=== PATIENT | female | born 1945 | race Caucasian/White ===

== ENCOUNTER 2016-10-22 12:42 | Inpatient (IN) | payer OTHER, BC ==
[~2016-10-22] VITALS: Ht 165.1 cm; Wt 83.7 kg
[~2016-10-22 12:42] MED LIST: ADVIN25050 INH; ASCA500 PO; CIPR-255 PO; CLTP PO; LISI-725 PO; LORA24TA7 PO; MULT-506 PO; POLY99.02 OPB; PRM625 PO; SALI1SPR3 NAE; SIMV20TA2 PO; VERA240T20 PO
[2016-10-22] MEDS ORDERED: PRED10TA PO (13:15)
[2016-10-22] MEDS ORDERED: MAGN400T6 PO (13:15)
[2016-10-22] MEDS ORDERED: OPTIRAY 320 IV PRN (13:30)
[2016-10-22 13:35] LABS: BASO % 0.1 %; BASO ABS # 0.01 K/uL (0-0.2); COMPLETE YES; IG% 0.4 %; LYMPH ABS # 0.67 K/uL (1.2-3.4); MEAN CORPUSCULAR HGB CONC 33.3 g/dl (32-36); MEAN PLATELET VOLUME 9.2 fL (7.4-10.4); NEUT % 91.5 %; PLATELET COUNT 360 K/uL (130-400); RED BLOOD COUNT 3.75 M/uL (4.2-5.4); WHITE BLOOD COUNT 11.22 K/uL (4.8-10.8)
[2016-10-22 13:44] LABS: INR 0.9 (0.9-1.1); PARTIAL THROMBOPLASTIN RATIO 0.8; PROTHROMBIN TIME (PATIENT) 9.9 SECONDS (9.0-12.0)
[2016-10-22 13:45] LABS: BUN/CREATININE RATIO 23.5 (10-20); CALCIUM 9.1 mg/dl (8.5-10.1); CREATININE 0.93 mg/dl (0.60-1.20); POTASSIUM 4.6 mmol/L (3.5-5.1)
--- NOTE | 2016-10-22 14:04 | DIAGNOSTIC IMAGING REPORT ---
CHEST CTA for PULMONARY ARTERIES CT DOSE: 420.49 mGy.cm HISTORY: Chest pain. Dyspnea. TECHNIQUE: Multiaxial CT images of the chest were performed following the intravenous administration of contrast to evaluate the pulmonary arteries. Maximal intensity projection images were also obtained. COMPARISON STUDY: None. FINDINGS: Moderate atherosclerotic change thoracic aorta. No evidence for aneurysm or dissection. Heart top limits normal terms of size. Filling defect within the pulmonary arteries Involving a right lower lobe distribution. No evidence for a central or saddle embolus. Small defects involving the proximal right upper lobe distribution. Lungs appear clear. IMPRESSION: Study is positive for acute pulmonary emboli involving the right hemithorax. No evidence for main or central saddle embolus. Electronically signed by: Curtis Bullock M.D. 10/22/2016 2:03 PM Dictated Date/Time: 10/22/2016 1:55 PM
[2016-10-22] MEDS ORDERED: HEPARIN 25000 UNIT/500 ML D5W ONE (14:40)
[2016-10-22] MEDS ORDERED: HEPARIN SOD 5000 UNIT/0.5 ML CARP ONE (14:40)
[2016-10-22] MEDS ORDERED: HEPARIN SOD (PORCINE) 1000 UNIT/ML 10 ML VIAL ONE (14:58)
[2016-10-22] MEDS ORDERED: HEPARIN 25,000 UNIT/500ML D5W 500 ML IV PRN ×3 (15:00→15:45)
[2016-10-22] MEDS ORDERED: HEPARIN IV BOLUS 5,000 UNIT in SYRINGE 0 ML IV ONE (15:15)
[2016-10-22] MEDS ORDERED: MONT1TAB3 PO (15:43)
[2016-10-22] MEDS ORDERED: VTMD1000 (15:43)
[2016-10-22] MEDS ORDERED: PROB1CAP6 (15:43)
[2016-10-22] MEDS ORDERED: ASPI81CH2 PO (15:43)
[2016-10-22] MEDS ORDERED: MELO7.5T6 PO (15:43)
[2016-10-22] MEDS ORDERED: CHN/1 PO (15:43)
[2016-10-22] MEDS ORDERED: CYCL0.052 OP (15:43)
[2016-10-22] MEDS ORDERED: ALBU18002 INH (15:43)
--- NOTE | 2016-10-22 16:42 | History and Physical ---
History & Physical Date & Time of Service: Oct 22, 2016 at 16:08 Chief Complaint: Trouble Breathing Primary Care Physician: Kingsley Landers M.D.(COLLEEN) History of Present Illness Source: patient, clinic records, hospital records 71 year old female with PMH of COPD, Dyslipidemia, HTN, Carotid stenosis presents to the Emergency Room with complaints of worsening shortness of breath over the past few weeks. Pt said that her shortness of breath worsening with minimal exertion. She said that she saw her PCP yesterday that that did a cxr that was negative and started her on singular and order blood work for her. she received a call today from her PCP that instructed her to go to the ED because of elevated DDimer. Denies chest pain, palpitation, cough, cold, fever, vomiting , leg swelling or pain, or other complaints. She denies any recent traveling or trauma. No history of blood clots in the past. She had a CTA chest/thorax done in the ER that was positive for pulmonary emboli. Past Medical/Surgical History Medical Problems: (1) angioplasty Status: Resolved (2) Asthma Status: Chronic (3) Benign hypertension Status: Chronic (4) cataract surgery Status: Resolved (5) Deviated nasal septum Status: Resolved (6) Dilation and curettage Status: Resolved (7) History of - hysterectomy Status: Resolved (8) History of - pneumonia Status: Chronic (9) History of augmentation of breast Status: Chronic (10) Hyperlipidemia Status: Chronic (11) Pulmonary emphysema Status: Chronic (12) Tonsillectomy and adenoidectomy Status: Resolved (13) [place] Teeth Removal Status: Resolved Social History Smoking Status: Former Smoker Drug Use: none Marital Status: Occupational Status: other Multi-Drug Resistant Organisms History of MDRO: No Allergies Coded Allergies: Lactose (Verified Allergy, Intermediate, GI DISTRESS, 10/22/16) PT IS LACTOSE INTOLERANT Diphenhydramine (Verified Allergy, Mild, HYPERACTIVITY AND SKIN CRAWLS, ) Clindamycin (Verified Allergy, Unknown, RASH, 10/22/16) ALLSCRIPTS Fluconazole (Unverified Allergy, Unknown, HIVES, 10/22/16) Home Medications Scheduled Aspirin (Aspirin), 81 MG PO DAILY Calcium/Vitamin D (Caltrate 600 Plus *), 2 TAB PO BID Cholecalciferol (Vitamin D3), 1,000 DAILY Cyclosporine (Ophth) (Restasis), 1 DROPS OP BID Estrogens, Conjugated (Premarin), 0.625 MG PO DAILY Fluticasone Prop/Salmeterol (Advair Diskus 250/50 Mcg *), 1 PUFF INH BID Lisinopril (Zestril), 20 MG PO BID Loratadine/Pseudoephedrine (Claritin-D 24 Hour), 1 TAB PO DAILY Magnesium Oxide (Mag-Ox), 400 MG PO DAILY Montelukast Sodium (Singulair), 1 TAB PO DAILY Multivitamin (Multivitamin), 1 TAB PO DAILY Prednisone (Prednisone), 5 MG PO DIRECTED Probiotic Product (Probiotic Acidophilus), DAILY Varenicline (Chantix), 1 TAB PO BID Verapamil Sust Rel (Calan Sr Ext Rel), 240 MG PO QAM Scheduled PRN Albuterol Sulfate (Proair Respiclick), 2 PUFF INH Q6H PRN for Shortness of Breath Meloxicam (Mobic), 1 TAB PO BID PRN for Pain Physical Exam Vital Signs Date Time Temp Pulse Resp B/P Pulse Ox O2 Delivery O2 Flow Rate FiO2 10/22/16 15:29 92 20 177/102 96 Room Air 10/22/16 14:00 90 20 135/64 95 10/22/16 13:28 97 Room Air 10/22/16 13:13 97 10/22/16 12:52 36.9 105 20 170/86 97 Room Air General Appearance: WD/WN, no apparent distress Head: normocephalic, atraumatic Eyes: normal inspection, PERRL, EOMI ENT: normal ENT inspection, hearing grossly normal, TMs normal Neck: no JVD, + pertinent finding (+carotid bruit) Respiratory/Chest: chest non-tender, no respiratory distress, no accessory muscle use Cardiovascular: regular rate, rhythm, no edema, no gallop, no JVD Abdomen/GI: normal bowel sounds, non tender, soft Back: normal inspection, no CVA tenderness, no muscle spasm, normal range of motion Extremities/Musculoskelatal: no calf tenderness, no pedal edema 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 as tested, no motor/sensory deficits, alert Skin: normal color, no rash Diagnostics Laboratory Results Results Past 24 Hours Test 10/22/16 13:05 10/22/16 13:31 Range/Units White Blood Count 11.22 4.8-10.8 K/uL Red Blood Count 3.75 4.2-5.4 M/uL Hemoglobin 12.0 12.0-16.0 g/dL Hematocrit 36.0 37-47 % Mean Corpuscular Volume 96.0 80-100 fL Mean Corpuscular Hemoglobin 32.0 25-34 pg Mean Corpuscular Hemoglobin Concent 33.3 32-36 g/dl Platelet Count 360 130-400 K/uL Mean Platelet Volume 9.2 7.4-10.4 fL Neutrophils (%) (Auto) 91.5 % Lymphocytes (%) (Auto) 6.0 % Monocytes (%) (Auto) 2.0 % Eosinophils (%) (Auto) 0.0 % Basophils (%) (Auto) 0.1 % Neutrophils # (Auto) 10.27 1.4-6.5 K/uL Lymphocytes # (Auto) 0.67 1.2-3.4 K/uL Monocytes # (Auto) 0.23 0.11-0.59 K/uL Eosinophils # (Auto) 0.00 0-0.5 K/uL Basophils # (Auto) 0.01 0-0.2 K/uL RDW Standard Deviation 47.9 36.4-46.3 fL RDW Coefficient of Variation 13.7 11.5-14.5 % Immature Granulocyte % (Auto) 0.4 % Immature Granulocyte # (Auto) 0.04 0.00-0.02 K/uL Prothrombin Time 9.9 9.0-12.0 SECONDS Prothromb Time International Ratio 0.9 0.9-1.1 Activated Partial Thromboplast Time 21.5 21.0-31.0 SECONDS Partial Thromboplastin Ratio 0.8 Sodium Level 139 136-145 mmol/L Potassium Level 4.6 3.5-5.1 mmol/L Chloride Level 105 98-107 mmol/L Carbon Dioxide Level 24 21-32 mmol/L Anion Gap 10.0 3-11 mmol/L Blood Urea Nitrogen 22 7-18 mg/dl Creatinine 0.93 0.60-1.20 mg/dl Est Creatinine Clear Calc Drug Dose 59.3 ml/min Estimated GFR () 71.7 Estimated GFR (Non- 61.8 BUN/Creatinine Ratio 23.5 10-20 Random Glucose 99 70-99 mg/dl Calcium Level 9.1 8.5-10.1 mg/dl Bedside Troponin I 0.000 0-0.045 ng/ml Diagnostic Radiology CHEST CTA for PULMONARY ARTERIES CT DOSE: 420.49 mGy.cm HISTORY: Chest pain. Dyspnea. TECHNIQUE: Multiaxial CT images of the chest were performed following the intravenous administration of contrast to evaluate the pulmonary arteries. Maximal intensity projection images were also obtained. COMPARISON STUDY: None. FINDINGS: Moderate atherosclerotic change thoracic aorta. No evidence for aneurysm or dissection. Heart top limits normal terms of size. Filling defect within the pulmonary arteries Involving a right lower lobe distribution. No evidence for a central or saddle embolus. Small defects involving the proximal right upper lobe distribution. Lungs appear clear. IMPRESSION: Study is positive for acute pulmonary emboli involving the right hemithorax. No evidence for main or central saddle embolus. Electronically signed by: Curtis Bullock M.D. 10/22/2016 2:03 PM Dictated Date/Time: 10/22/2016 1:55 PM Impression Assessment and Plan 71 yo Female with PMH of COPD, on estrogen therapy with Premarin, presents to ER with worsening SOB. Pulmonary emboli Possible related to Premarin CTA Chest showed acute pulmonary emboli involving the right hemithorax. Heparin drip was started in the ER Will continue heparin drip for now Discussed with pt about anticoagulant therapy and the risks such as increase risks of bleeduing (GI bleed, hematuria) Pt is interested to start on the newer agents over coumadin will talk to spring encaser in am to see which one her insurance will cover Consider to discontinue the premarin will get an echo in am check doppler of LE continue monitor HTN Will resume lisinopril, verapamil continue monitor BP Tobacco abuse Continue chantix COPD Continue advair Neb treatment with Duoneb DVT On heparin drip Code Status Full code Resuscitation Status FULL RESUSCITATION VTE Prophylaxis VTE Risk Assessment Done? Y/N: Yes Risk Level: High Additional Copies To Kingsley Landers M.D. (HUGH)
--- NOTE | 2016-10-22 17:37 | EMERGENCY ROOM VISIT NOTE ---
History Report prepared by Arvindibedu: Carmen Boyle Under the Supervision of: Dr. Benigno Li M.D. First contact with patient: 13:18 Chief Complaint: RESPIRATORY PROBLEMS Stated Complaint: TROUBLE BREATHING Nursing Triage Summary: pt to [facility] ED with worsening SOB prasanna CHILDS pt sent over from PMD office with abnormal d dimer History of Present Illness The patient is a 71 year old female who presents to the Emergency Room with complaints of worsening shortness of breath over the past 2 weeks. Her shortness of breath is worsened with minimal exertion such as putting on a pair of shoes. She has had occasional wheezing. She also complains of random, diffuse chest cramping over the past couple of weeks. She has not noticed any chest discomfort in the past few days. Yesterday, the patient saw her PCP for blood work and a chest x-ray. Her D-dimer was elevated and she was referred to the ED. She does not wear oxygen at home. Past medical history includes COPD. Denies cough, cold, fever, vomiting, leg swelling or pain, or other complaints. No personal history of heart disease or blood clots. Source of History: patient Onset: 2 weeks ago Position: other (global) Quality: other (shortness of breath) Timing: worsening Modifying Factors (Worsening): exertion Associated Symptoms: + chest pain (intermittent, cramping), No cough, No fevers, No vomiting Review of Systems See HPI for pertinent positives & negatives. A total of 10 systems reviewed and were otherwise negative. Past Medical & Surgical Medical Problems: (1) angioplasty (2) Asthma (3) Benign hypertension (4) cataract surgery (5) Deviated nasal septum (6) Dilation and curettage (7) History of - hysterectomy (8) History of - pneumonia (9) History of augmentation of breast (10) Hyperlipidemia (11) Pulmonary emboli (12) Pulmonary emphysema (13) Tonsillectomy and adenoidectomy (14) [place] Teeth Removal Family History No pertinent family history stated. Social History Smoking Status: Former Smoker Marital Status: Housing Status: lives with family Occupation Status: other Current/Historical Medications Scheduled Aspirin (Aspirin), 81 MG PO DAILY Calcium/Vitamin D (Caltrate 600 Plus *), 2 TAB PO BID Cholecalciferol (Vitamin D3), 1,000 DAILY Cyclosporine (Ophth) (Restasis), 1 DROPS OP BID Estrogens, Conjugated (Premarin), 0.625 MG PO DAILY Fluticasone Prop/Salmeterol (Advair Diskus 250/50 Mcg *), 1 PUFF INH BID Lisinopril (Zestril), 20 MG PO BID Loratadine/Pseudoephedrine (Claritin-D 24 Hour), 1 TAB PO DAILY Magnesium Oxide (Mag-Ox), 400 MG PO DAILY Montelukast Sodium (Singulair), 1 TAB PO DAILY Multivitamin (Multivitamin), 1 TAB PO DAILY Prednisone (Prednisone), 5 MG PO DIRECTED Probiotic Product (Probiotic Acidophilus), DAILY Varenicline (Chantix), 1 TAB PO BID Verapamil Sust Rel (Calan Sr Ext Rel), 240 MG PO QAM Scheduled PRN Albuterol Sulfate (Proair Respiclick), 2 PUFF INH Q6H PRN for Shortness of Breath Meloxicam (Mobic), 1 TAB PO BID PRN for Pain Allergies Coded Allergies: Lactose (Verified Allergy, Intermediate, GI DISTRESS, 10/22/16) PT IS LACTOSE INTOLERANT Diphenhydramine (Verified Allergy, Mild, HYPERACTIVITY AND SKIN CRAWLS, ) Clindamycin (Verified Allergy, Unknown, RASH, 10/22/16) ALLSCRIPTS Fluconazole (Unverified Allergy, Unknown, HIVES, 10/22/16) Physical Exam Vital Signs Date Time Temp Pulse Resp B/P Pulse Ox O2 Delivery O2 Flow Rate FiO2 10/22/16 16:28 90 18 154/98 96 Room Air 10/22/16 15:29 92 20 177/102 96 Room Air 10/22/16 14:00 90 20 135/64 95 10/22/16 13:28 97 Room Air 10/22/16 13:13 97 10/22/16 12:52 36.9 105 20 170/86 97 Room Air Physical Exam Constitutional: Vital signs reviewed. Eyes: Pupils are equal round reactive to light. Conjunctiva are noninjected. ENT: Pharynx is clear without erythema or exudate. Mucous membranes are moist. Neck supple without meningeal signs. Respiratory: Clear to auscultation bilaterally. Breath sounds are equal bilaterally. No wheezing. Cardiovascular: Regular rate and rhythm. No rubs or gallops. GI: Soft, nondistended and nontender. Bowel sounds are present. Musculoskeletal: No peripheral edema. No lower extremity tenderness. Integumentary: No cyanosis. Neurological: The patient is awake and alert. No focal deficits. Psychiatric: Normal affect. Medical Decision & Procedures ER Provider Diagnostic Interpretation: Radiology results as stated below per my review and the radiologist's interpretation: CHEST CTA for PULMONARY ARTERIES CT DOSE: 420.49 mGy.cm HISTORY: Chest pain. Dyspnea. TECHNIQUE: Multiaxial CT images of the chest were performed following the intravenous administration of contrast to evaluate the pulmonary arteries. Maximal intensity projection images were also obtained. COMPARISON STUDY: None. FINDINGS: Moderate atherosclerotic change thoracic aorta. No evidence for aneurysm or dissection. Heart top limits normal terms of size. Filling defect within the pulmonary arteries Involving a right lower lobe distribution. No evidence for a central or saddle embolus. Small defects involving the proximal right upper lobe distribution. Lungs appear clear. IMPRESSION: Study is positive for acute pulmonary emboli involving the right hemithorax. No evidence for main or central saddle embolus. Electronically signed by: Curtis Bullock M.D. 10/22/2016 2:03 PM Dictated Date/Time: 10/22/2016 1:55 PM Laboratory Results 10/22/16 13:05 Red Blood Count 3.75, Mean Corpuscular Volume 96.0, Mean Corpuscular Hemoglobin 32.0, Mean Corpuscular Hemoglobin Concent 33.3, Mean Platelet Volume 9.2, Neutrophils (%) (Auto) 91.5, Lymphocytes (%) (Auto) 6.0, Monocytes (%) (Auto) 2.0, Eosinophils (%) (Auto) 0.0, Basophils (%) (Auto) 0.1, Neutrophils # (Auto) 10.27, Lymphocytes # (Auto) 0.67, Monocytes # (Auto) 0.23, Eosinophils # (Auto) 0.00, Basophils # (Auto) 0.01 10/22/16 13:05 Test 10/22/16 13:05 10/22/16 13:31 White Blood Count 11.22 K/uL (4.8-10.8) Red Blood Count 3.75 M/uL (4.2-5.4) Hemoglobin 12.0 g/dL (12.0-16.0) Hematocrit 36.0 % (37-47) Mean Corpuscular Volume 96.0 fL (80-100) Mean Corpuscular Hemoglobin 32.0 pg (25-34) Mean Corpuscular Hemoglobin Concent 33.3 g/dl (32-36) Platelet Count 360 K/uL (130-400) Mean Platelet Volume 9.2 fL (7.4-10.4) Neutrophils (%) (Auto) 91.5 % Lymphocytes (%) (Auto) 6.0 % Monocytes (%) (Auto) 2.0 % Eosinophils (%) (Auto) 0.0 % Basophils (%) (Auto) 0.1 % Neutrophils # (Auto) 10.27 K/uL (1.4-6.5) Lymphocytes # (Auto) 0.67 K/uL (1.2-3.4) Monocytes # (Auto) 0.23 K/uL (0.11-0.59) Eosinophils # (Auto) 0.00 K/uL (0-0.5) Basophils # (Auto) 0.01 K/uL (0-0.2) RDW Standard Deviation 47.9 fL (36.4-46.3) RDW Coefficient of Variation 13.7 % (11.5-14.5) Immature Granulocyte % (Auto) 0.4 % Immature Granulocyte # (Auto) 0.04 K/uL (0.00-0.02) Prothrombin Time 9.9 SECONDS (9.0-12.0) Prothromb Time International Ratio 0.9 (0.9-1.1) Activated Partial Thromboplast Time 21.5 SECONDS (21.0-31.0) Partial Thromboplastin Ratio 0.8 Anion Gap 10.0 mmol/L (3-11) Est Creatinine Clear Calc Drug Dose 59.3 ml/min Estimated GFR () 71.7 Estimated GFR (Non- 61.8 BUN/Creatinine Ratio 23.5 (10-20) Calcium Level 9.1 mg/dl (8.5-10.1) Bedside Troponin I 0.000 ng/ml (0-0.045) Laboratory results as reviewed by me. Medications Administered Medications (Trade) Dose Ordered Sig/Hoa Route Start Time Stop Time Status Last Admin Dose Admin Heparin Sodium/ Dextrose (Heparin 25,000 Unit/500ml D5W) 25,000 unit STK-MED ONCE .ROUTE 10/22/16 14:40 3/21/17 14:44 DC 10/22/16 15:24 25,000 UNIT Heparin Sodium (Porcine) (Heparin Iv Bolus) 10,000 unit STK-MED ONCE .ROUTE 10/22/16 14:58 10/22/16 15:02 DC 10/22/16 15:22 5,000 UNIT ECG Indication: SOB/dyspnea Rate (beats per minute): 99 Rhythm: normal sinus Findings: no acute ischemic change, no ectopy ED Course 1320: The patient was evaluated in room C3. A complete history and physical exam was performed. 1330: According to the [facility] report, her D-dimer was 3.3. 1400: I reassessed the patient and talked to her about test results. I recommended a CT to rule out PE. She agreed to the CT. 1433: Ordered Heparin Sodium/Dextrose 1 ea. 1437: I reassessed the patient and updated her on her CT results. She does not have a prior history of GI bleeds or bleeding in the brain. 1449: I discussed the case with Dr. Pia Freeman. The patient will be evaluated for further management. Medical Decision This is a 71-year-old female presents with dyspnea on exertion. Differential diagnosis includes pulmonary embolism, DVT, pneumonia, pneumothorax, COPD exacerbation, acute coronary syndrome. I did perform a limited focused review of portions of the patient's old chart on the electronic medical record. The patient has had no recent pertinent visits to this hospital. I did evaluate the patient as noted above. IV access was established. The patient was placed on a continuous cardiac/vascular sonographer. I did order and personally review the patient's 12-lead EKG as described above. I did order and review the patient's blood work as noted in the electronic medical record. I did order a CT of the chest. I did review the images myself as well as the radiology report as described above. The patient has pulmonary emboli to the right hemithorax. I did discuss the test results with the patient. I did recommend heparinization. I did start patient on a heparin drip with an IV bolus. I did discuss the case with the hospitalist and rehabilitation case coordinator for admission. Consults Time Called: 1440 Consulting Physician: Dr. Pia Freeman Returned Call: [phone] I discussed the case with him. The patient will be evaluated for further management. Impression Primary Impression: Pulmonary emboli Critical Care I have personally spent 32 minutes of critical care time in the direct management of this patient. This includes bedside care, interpretation of diagnostic studies, and testing, discussion with consultants, patient, and family members, and other required patient management activities. This 32 minutes is in excess of all separately billable procedures. Scribe Attestation The scribe's documentation has been prepared under my direct and personally reviewed by me in its entirety. I confirm that the note above accurately reflects all work, treatment, procedures, and medical decision making performed by me. Departure Information Dispostion Being Evaluated By Hospitalist Referrals Kingsley Landers M.D.(COLLEEN) (PCP) Patient Instructions My [facility] Problem Qualifiers Primary Impression: Pulmonary emboli Pulmonary embolism type: other Chronicity: acute
[2016-10-22 18:29] VITALS: BP 168/75; PULSE 79; TEMP 36.8; O2SAT 96; Ht 165.1 cm; Wt 83.7 kg
[2016-10-22] MEDS: ALBUT/IPRATROP 3MG/0.5MG NEB 3 ML VIAL INH SCH (19:23)
--- NOTE | 2016-10-22 20:03 | DIAGNOSTIC IMAGING REPORT ---
BILATERAL LOWER EXTREMITY VENOUS DOPPLER HISTORY: Pulmonary emboli COMPARISON STUDY: None. FINDINGS: There is normal compressibility, flow, and augmentation within the bilateral lower extremity deep venous systems. IMPRESSION: No DVT within the right or left lower extremity. Electronically signed by: Chad Olson M.D. 10/22/2016 8:02 PM Dictated Date/Time: 10/22/2016 8:02 PM
[2016-10-22] MEDS ORDERED: VARENICLINE 0.5 MG TAB PO SCH (21:00)
[2016-10-22] MEDS: LISINOPRIL 20 MG TAB PO SCH (21:24)
[2016-10-22] MEDS: FLUTICASONE/SALMETEROL 250/50 (ADVAIR) 14 PUFF/1 INHALER INH SCH (21:24)
[2016-10-22] MEDS: CALCIUM 600MG + VIT D 400 IU TAB PO SCH (21:25)
[2016-10-22] MEDS: VARENICLINE (CHANTIX) 1 MG TAB PO SCH (22:16)
[2016-10-22 23:58] VITALS: BP 136/69; PULSE 74; TEMP 36.7; O2SAT 95
[2016-10-23] VITALS (8 sets, daily range): BP systolic 122–143; BP diastolic 61–84; PULSE 69–86; TEMP 36.4–36.7; O2SAT 92–98
[2016-10-23 07:51] LABS: HEMATOCRIT 34.5 % (37-47); MEAN CELL VOLUME 95.6 fL (80-100); MEAN CORPUSCULAR HEMOGLOBIN 32.4 pg (25-34); MEAN CORPUSCULAR HGB CONC 33.9 g/dl (32-36); PLATELET COUNT 305 K/uL (130-400); RED BLOOD COUNT 3.61 M/uL (4.2-5.4); WHITE BLOOD COUNT 7.03 K/uL (4.8-10.8)
[2016-10-23] MEDS: ALBUT/IPRATROP 3MG/0.5MG NEB 3 ML VIAL INH SCH ×4 (07:59→20:00)
[2016-10-23] MEDS: RESTASIS: ORDER AWAITING ACTION SCH ×4 (08:00→23:56)
[2016-10-23 08:07] LABS: PROTHROMBIN TIME (PATIENT) 10.8 SECONDS (9.0-12.0)
[2016-10-23] MEDS: VERAPAMIL HCL 240 MG TABCR PO SCH (08:23)
[2016-10-23] MEDS: FLUTICASONE/SALMETEROL 250/50 (ADVAIR) 14 PUFF/1 INHALER INH SCH ×2 (08:23→21:07)
[2016-10-23] MEDS: CALCIUM 600MG + VIT D 400 IU TAB PO SCH ×2 (08:24→21:08)
[2016-10-23] MEDS: VARENICLINE (CHANTIX) 1 MG TAB PO SCH ×2 (08:25→21:08)
[2016-10-23] MEDS: ASPIRIN 81 MG ECTAB PO SCH (08:26)
[2016-10-23] MEDS: MAGNESIUM OXIDE 400 MG TAB PO SCH (08:26)
[2016-10-23] MEDS: MONTELUKAST SOD 10 MG TAB PO SCH (08:27)
[2016-10-23] MEDS: CHOLECALCIFEROL 1000 INTER.UNIT TAB PO SCH (08:28)
[2016-10-23] MEDS: LISINOPRIL 20 MG TAB PO SCH ×2 (08:28→21:09)
[2016-10-23 08:41] LABS: BUN/CREATININE RATIO 19.5 (10-20); CREATININE 0.87 mg/dl (0.60-1.20); POTASSIUM 3.8 mmol/L (3.5-5.1)
--- NOTE | 2016-10-23 10:09 | Clinical Documentation Query ---
PEDRITO Conner : CLINICAL DOCUMENTATION QUERY Patient is a 71 year old female admitted for evaluation and treatment of shortness of breath, subsequently determined to have pulmonary emboli per CT scan of the chest. Additional documentation includes "DVT", and notes patient "on heparin drip". Venous ultrasound of the lower extremities negative for acute DVT. 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 Thank you. In your clinical opinion is this patient being managed for: ( ) Acute DVT, ruled out ( )(Suspected) Acute DVT, on heparin drip ( +) DVT prophylaxis, on heparin drip ( ) Other explanation of clinical findings (Please Explain) ( ) Unable to determine (Please Define) ( ) Need to Discuss ( ) Not Agree The medical record reflects the following clinical findings, treatment, and risk factors. Clinical Indicators: As above Treatment: IV Heparin Risk Factors: Age, Premarin, relative physical inactivity Please clarify and document your clinical opinion in the progress notes and discharge summary. Terms such as "probable", "suspected", "likely", "questionable", "possible", or "still to be ruled out" are acceptable. IF IN AGREEMENT, YOU MUST DOCUMENT ABOVE DIAGNOSTIC STATEMENT IN DAILY PROGRESS NOTES AND DISCHARGE SUMMARY. This document is not part of the patient's record. Thank You, Dexter James, CHUCK [phone]
--- NOTE | 2016-10-23 11:37 | Progress Note ---
Internal Med Progress Note Date of Service: Oct 23, 2016. Provider Documentation: SUBJECTIVE: Patient is doing well. SOB has improved, NO chest pain, cough, fever, chills. Not hypoxic OBJECTIVE: Vital Signs-as noted below Exam: General-AAOX3, no distress Neck-Supple Lungs-AEBE, no crackles, wheezing Heart-S1, S2 normal Extremities-No edema Lab data as noted below. ASSESSMENT & PLAN: 71 yo Female with PMH of COPD, on estrogen therapy with Premarin, presents to ER with worsening SOB. RIGHT PULMONARY EMBOLI : Possibly related to Premarin CTA Chest showed acute pulmonary emboli involving the right hemithorax. -IV Heparin (Day 2) -Patient wants xarelto. Explained the risks/benefits- Risks of bleeding with no antidote available. Understands and wants to go for xarelto. -Work up- CT chest- Right PE, Venous duplex- No DVT, Echo pending HTN -Will continue with lisinopril, verapamil -continue monitor BP Tobacco abuse -Continue chantix COPD -Continue advair -Neb treatment with Duoneb DVT PROPHYLAXIS -On heparin drip Code Status -Full code Vital Signs: Date Time Temp Pulse Resp B/P Pulse Ox O2 Delivery O2 Flow Rate FiO2 10/23/16 14:51 36.7 71 20 134/72 92 10/23/16 11:25 76 14 98 Room Air 10/23/16 10:40 98 Room Air 10/23/16 07:30 36.4 86 18 143/84 98 Room Air 10/23/16 07:29 69 14 97 Room Air 10/23/16 00:00 Room Air 10/22/16 23:58 36.7 74 18 136/69 95 Room Air 74 10/22/16 20:00 Room Air 10/22/16 18:29 36.8 79 20 168/75 96 Room Air 10/22/16 17:41 86 18 178/98 96 Room Air 10/22/16 16:28 90 18 154/98 96 Room Air 10/22/16 15:29 92 20 177/102 96 Room Air Lab Results: Results Past 24 Hours Test 10/22/16 23:10 10/23/16 07:20 Range/Units Activated Partial Thromboplast Time 52.0 52.7 21.0-31.0 SECONDS Partial Thromboplastin Ratio 2.0 2.0 White Blood Count 7.03 4.8-10.8 K/uL Red Blood Count 3.61 4.2-5.4 M/uL Hemoglobin 11.7 12.0-16.0 g/dL Hematocrit 34.5 37-47 % Mean Corpuscular Volume 95.6 80-100 fL Mean Corpuscular Hemoglobin 32.4 25-34 pg Mean Corpuscular Hemoglobin Concent 33.9 32-36 g/dl RDW Standard Deviation 47.3 36.4-46.3 fL RDW Coefficient of Variation 13.5 11.5-14.5 % Platelet Count 305 130-400 K/uL Mean Platelet Volume 9.0 7.4-10.4 fL Prothrombin Time 10.8 9.0-12.0 SECONDS Prothromb Time International Ratio 1.0 0.9-1.1 Sodium Level 139 136-145 mmol/L Potassium Level 3.8 3.5-5.1 mmol/L Chloride Level 101 98-107 mmol/L Carbon Dioxide Level 29 21-32 mmol/L Anion Gap 9.0 3-11 mmol/L Blood Urea Nitrogen 17 7-18 mg/dl Creatinine 0.87 0.60-1.20 mg/dl Est Creatinine Clear Calc Drug Dose 63.4 ml/min Estimated GFR () 77.7 Estimated GFR (Non- 67.0 BUN/Creatinine Ratio 19.5 10-20 Random Glucose 84 70-99 mg/dl Calcium Level 10.0 8.5-10.1 mg/dl
--- NOTE | 2016-10-23 16:06 | ECHOCARDIOGRAM REPORT ---
*NOTICE TO RECEIVING [employer] This information is strictly Confidential and protected under [place] law. [place] law prohibits you from making any further disclosure of this information unless further disclosure is expressly permitted by the written consent of the person to whom it pertains or is authorized by law. A general authorization for the release of medical or other information is not sufficient for this purpose. Hospital accepts no responsibility if the information is made available to any other person, INCLUDING THE PATIENT. Interpretation Summary * Name: ZOHRA FLORES Study Date: 10/23/2016 07:37 AM BP: 143/84 mmHg * Patient Location: .[id number]\W255\S\2 HR: 86 * : 1945 (M/d/yyyy) Gender: Female Height: 65 in * Age: 71 yrs Ethnicity: [place] Weight: 184 lb * Ordering Physician: Pia Rodriguez * Referring Physician: Self, Referred * Performed By: Juan Antonio Irvin RCS * * Reason For Study: PE, SOB * BSA: 1.9 m2 * -- Conclusions -- * The left ventricle is normal in size. * Left ventricular systolic function is normal. * Ejection Fraction = 60-65%. * The right ventricular systolic function is normal. * The left atrial size is normal. * Right atrial size is normal. * No significant vavular pathology. Procedure Details * A complete two-dimensional transthoracic echocardiogram was performed (2D, M-mode, Doppler and color flow Doppler). Left Ventricle * The left ventricle is normal in size. * There is normal left ventricular wall thickness. * Ejection Fraction = 60-65%. * Left ventricular systolic function is normal. Right Ventricle * The right ventricle is normal size. * The right ventricular systolic function is normal. Atria * The left atrial size is normal. * Right atrial size is normal. * The interatrial septum is intact with no evidence for an atrial septal defect. Mitral Valve * The mitral valve anatomy is normal. * Significant mitral regurgitation is absent. Tricuspid Valve * The tricuspid valve anatomy is normal. * Significant tricuspid regurgitation is absent. Aortic Valve * The aortic valve is trileaflet. * The aortic valve opens well. * There is no significant aortic regurgitation. Pulmonic Valve * The pulmonic valve is not well visualized. Great Vessels * The aortic root and proximal ascending aorta are normal sized. Pericardium/Pleural * There is no pericardial effusion. Left Ventricular Diastolic Function * Grade I diastolic dysfunction, (abnormal relaxation pattern). MMode 2D Measurements and Calculations IVSd 0.90 cm IVSs 1.2 cm LVIDd 4.1 cm LVIDs 2.8 cm LVPWd 1.0 cm LVPWs 1.2 cm IVS/LVPW 0.88 FS 33.1 % EDV(Teich) 75.9 ml ESV(Teich) 28.8 ml EF(Teich) 62.1 % EDV(cubed) 70.8 ml ESV(cubed) 21.2 ml EF(cubed) 70.0 % % IVS thick 33.4 % % LVPW thick 12.5 % LV mass(C)d 127.3 grams LV mass(C)dI 66.7 grams/m\S\2 LV mass(C)s 95.0 grams LV mass(C)sI 49.7 grams/m\S\2 CO(Teich) 3.1 l/min CI(Teich) 1.6 l/min/m\S\2 SV(Teich) 47.1 ml SI(Teich) 24.7 ml/m\S\2 CO(cubed) 3.2 l/min CI(cubed) 1.7 l/min/m\S\2 SV(cubed) 49.6 ml SI(cubed) 26.0 ml/m\S\2 Ao root diam 3.5 cm Ao root area 9.4 cm\S\2 ACS 1.4 cm LA dimension 3.7 cm LA/Ao 1.1 LVAd ap4 28.6 cm\S\2 LVLd ap4 8.7 cm EDV(MOD-sp4) 77.0 ml LVAs ap4 14.6 cm\S\2 LVLs ap4 7.0 cm ESV(MOD-sp4) 26.0 ml EF(MOD-sp4) 66.2 % LVAd ap2 26.8 cm\S\2 LVLd ap2 8.6 cm EDV(MOD-sp2) 69.0 ml LVAs ap2 15.9 cm\S\2 LVLs ap2 7.0 cm ESV(MOD-sp2) 31.0 ml EF(MOD-sp2) 55.1 % CO(MOD-sp4) 3.3 l/min CI(MOD-sp4) 1.7 l/min/m\S\2 SV(MOD-sp4) 51.0 ml SI(MOD-sp4) 26.7 ml/m\S\2 CO(MOD-sp2) 2.5 l/min CI(MOD-sp2) 1.3 l/min/m\S\2 SV(MOD-sp2) 38.0 ml SI(MOD-sp2) 19.9 ml/m\S\2 Doppler Measurements and Calculations MV E max vicky 100.7 cm/sec MV A max vicky 120.9 cm/sec MV E/A 0.83 MV P1/2t max vicky 97.7 cm/sec MV P1/2t 100.2 msec MVA(P1/2t) 2.2 cm\S\2 MV dec slope 285.6 cm/sec\S\2 MV dec time 0.29 sec Ao V2 max 130.3 cm/sec Ao max PG 6.8 mmHg Ao max PG (full) 2.4 mmHg LV V1 max PG 4.4 mmHg LV V1 max 104.7 cm/sec PA V2 max 99.0 cm/sec PA max PG 3.9 mmHg
[2016-10-24 07:05] VITALS: BP 115/67; PULSE 80; TEMP 36.7; O2SAT 94
[2016-10-24 07:38] VITALS: PULSE 97; O2SAT 98
[2016-10-24] MEDS: CALCIUM 600MG + VIT D 400 IU TAB PO SCH (07:53)
[2016-10-24] MEDS: MONTELUKAST SOD 10 MG TAB PO SCH (07:53)
[2016-10-24] MEDS: VARENICLINE (CHANTIX) 1 MG TAB PO SCH (07:53)
[2016-10-24] MEDS: MAGNESIUM OXIDE 400 MG TAB PO SCH (07:53)
[2016-10-24] MEDS: VERAPAMIL HCL 240 MG TABCR PO SCH (07:53)
[2016-10-24] MEDS: FLUTICASONE/SALMETEROL 250/50 (ADVAIR) 14 PUFF/1 INHALER INH SCH (07:53)
[2016-10-24] MEDS: CHOLECALCIFEROL 1000 INTER.UNIT TAB PO SCH (07:54)
[2016-10-24] MEDS: ALBUT/IPRATROP 3MG/0.5MG NEB 3 ML VIAL INH SCH (08:00)
[2016-10-24] MEDS: RESTASIS: ORDER AWAITING ACTION SCH (08:00)
[2016-10-24] MEDS: ASPIRIN 81 MG ECTAB PO SCH (08:50)
[2016-10-24] MEDS ORDERED: IPRATROPIUM BROMIDE/ALBUTEROL respimat INH INH SCH (09:00)
[2016-10-24] MEDS ORDERED: RIVAROXABAN TAB 15 MG TAB PO SCH (09:00)
--- NOTE | 2016-10-24 09:50 | Progress Note ---
Internal Med Progress Note Date of Service: Oct 24, 2016. Provider Documentation: SUBJECTIVE: Patient is doing well. SOB has improved, NO chest pain, cough, fever, chills. Not hypoxic Eager to be discharged OBJECTIVE: Vital Signs-as noted below Exam: General-AAOX3, no distress Neck-Supple Lungs-AEBE, no crackles, wheezing Heart-S1, S2 normal Extremities-No edema Lab data as noted below. ASSESSMENT & PLAN: 71 yo Female with PMH of COPD, on estrogen therapy with Premarin, presents to ER with worsening SOB. RIGHT PULMONARY EMBOLI : Possibly related to Premarin CTA Chest showed acute pulmonary emboli involving the right hemithorax. -IV Heparin (Day 3)--> Transition to Xarelto 15 mg BID x 21 days followed by 20 mg daily -Provided options of coumadin / Newer anticoagulants --Xarelto. Explained the risks/benefits for xarelto- Risks of bleeding with no antidote available. Understands and wants to go for xarelto. -Work up- CT chest- Right PE, Venous duplex- No DVT, Echo- Rt ventricular function normal HTN -Will continue with lisinopril, verapamil -continue monitor BP Tobacco abuse -Continue chantix COPD -Continue advair -Neb treatment with Duoneb DVT PROPHYLAXIS -Xaralto Code Status -Full code -Xarelto covered with $ 45 co pay which patient is agreeable to OK to discharge home today Vital Signs: Date Time Temp Pulse Resp B/P Pulse Ox O2 Delivery O2 Flow Rate FiO2 10/24/16 07:38 97 12 98 Room Air 10/24/16 07:05 36.7 80 20 115/67 94 10/24/16 01:00 Room Air 10/23/16 23:54 36.5 85 20 122/61 95 Room Air 10/23/16 16:30 92 Room Air 10/23/16 16:08 69 14 96 Room Air 10/23/16 14:51 36.7 71 20 134/72 92 10/23/16 11:25 76 14 98 Room Air 10/23/16 10:40 98 Room Air Lab Results: Results Past 24 Hours Test 10/24/16 07:45 Range/Units Activated Partial Thromboplast Time 51.6 21.0-31.0 SECONDS Partial Thromboplastin Ratio 2.0
[2016-10-24] MEDS ORDERED: XRL15 PO (09:52)
[2016-10-24] MEDS ORDERED: RIVA1TAB4 PO (09:52)
--- NOTE | 2016-10-24 09:57 | Discharge Summary ---
Discharge Summary Date of Service Oct 24, 2016. Discharge Summary Admission Date: Oct 22, 2016 at 15:53 Discharge Date: Oct 24, 2016 Discharge Disposition: Home Principal Diagnosis: 1. Right pulmonary embolism Secondary Diagnoses/Problems: 1. Hypertension 2. Tobacco abuse 3. COPD Procedures: CT scan chest Venous duplex IV heparin Echo Consultations: None Pending Studies/Follow-Up: Instructions / Follow-Up Instructions / Follow-Up MEDICATION CHANGES: 1. Discontinued Aspirin as started you on xarelto 2. New medication: Xarelto 15 mg PO BID with meals x 21 days followed by 20 mg daily with evening meal FOLLOW UP 1. Follow up with Dr Landers 10/31/16 at 10:50 AM Medication Reconciliation New Medications: Rivaroxaban (Xarelto) 20 Mg Tab 1 TAB PO DAILY for 30 Days, #30 TAB 11 Refills Take 15 mg PO BID with meals x 21 days followed by 20 mg daily with evening meal Rivaroxaban (Xarelto) 15 Mg Tab 15 MG PO BID for 21 Days, #42 TAB Continued Medications: Albuterol Sulfate (Proair Respiclick) 108 Mcg/Act Aer 2 PUFF INH Q6H PRN for Shortness of Breath Calcium/Vitamin D (Caltrate 600 Plus *) Tab 2 TAB PO BID Cholecalciferol (Vitamin D3) 1,000 Inter.unit Tab 1000 DAILY Cyclosporine (Ophth) (Restasis) 0.05 % Emu 1 DROPS OP BID for 30 Days, #60 VIAL 3 Refills Estrogens, Conjugated (Premarin) 0.625 Mg Tab 0.625 MG PO DAILY, TAB Fluticasone Prop/Salmeterol (Advair Diskus 250/50 Mcg *) Aerp 1 PUFF INH BID Lisinopril (Zestril) 20 Mg Tab 20 MG PO BID Loratadine/Pseudoephedrine (Claritin-D 24 Hour) 1 Tab Tab 1 TAB PO DAILY, TAB Magnesium Oxide (Mag-Ox) 400 Mg Tab 400 MG PO DAILY, TAB Meloxicam (Mobic) 7.5 Mg Tab 1 TAB PO BID PRN for Pain for 30 Days, #60 TAB 2 Refills Montelukast Sodium (Singulair) 10 Mg Tab 1 TAB PO DAILY for 90 Days, #90 TAB 1 Refill Multivitamin (Multivitamin) Tab 1 TAB PO DAILY Prednisone (Prednisone) 10 Mg Tab 5 MG PO DIRECTED, TAB Probiotic Product (Probiotic Acidophilus) 1 Cap Cap DAILY Varenicline (Chantix) 1 Mg Tab 1 TAB PO BID for 30 Days, #60 TAB 1 Refill Verapamil Sust Rel (Calan Sr Ext Rel) 240 Mg Tabcr 240 MG PO QAM, TAB Discontinued Medications: Aspirin (Aspirin) Unknown Strength Chw 81 MG PO DAILY for 30 Days, TAB 3 Refills Admission Information HPI (per Admitting provider): 71 year old female with PMH of COPD, Dyslipidemia, HTN, Carotid stenosis presents to the Emergency Room with complaints of worsening shortness of breath over the past few weeks. Pt said that her shortness of breath worsening with minimal exertion. She said that she saw her PCP yesterday that that did a cxr that was negative and started her on singular and order blood work for her. she received a call today from her PCP that instructed her to go to the ED because of elevated DDimer. Denies chest pain, palpitation, cough, cold, fever, vomiting , leg swelling or pain, or other complaints. She denies any recent traveling or trauma. No history of blood clots in the past. She had a CTA chest/thorax done in the ER that was positive for pulmonary emboli. Physical Exam (per Admitting): General Appearance: WD/WN, no apparent distress Head: normocephalic, atraumatic Eyes: normal inspection, PERRL, EOMI ENT: normal ENT inspection, hearing grossly normal, TMs normal Neck: no JVD, + pertinent finding (+carotid bruit) Respiratory/Chest: chest non-tender, no respiratory distress, no accessory muscle use Cardiovascular: regular rate, rhythm, no edema, no gallop, no JVD Abdomen/GI: normal bowel sounds, non tender, soft Back: normal inspection, no CVA tenderness, no muscle spasm, normal range of motion Extremities/Musculoskelatal: no calf tenderness, no pedal edema 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 RIGHT PULMONARY EMBOLI : Possibly related to Premarin CTA Chest showed acute pulmonary emboli involving the right hemithorax. -IV Heparin (Day 3)--> Transition to Xarelto 15 mg BID x 21 days followed by 20 mg daily -Provided options of coumadin / Newer anticoagulants --Xarelto. Explained the risks/benefits for xarelto- Risks of bleeding with no antidote available. Understands and wants to go for xarelto. -Work up- CT chest- Right PE, Venous duplex- No DVT, Echo- Rt ventricular function normal HTN -Will continue with lisinopril, verapamil -continue monitor BP COPD -Continue advair -Neb treatment with Duoneb Tobacco abuse -Continue chantix DVT PROPHYLAXIS -Xaralto Code Status -Full code -Xarelto covered with $ 45 co pay which patient is agreeable to OK to discharge home today Total time spent on discharge = 32 minutes This includes examination of the patient, discharge planning, medication reconciliation, and communication with other providers. Discharge Instructions Activity Recommendations Activity Limitations: resume your previous activity . Instructions / Follow-Up Instructions / Follow-Up MEDICATION CHANGES: 1. Discontinued Aspirin as started you on xarelto 2. New medication: Xarelto 15 mg PO BID with meals x 21 days followed by 20 mg daily with evening meal FOLLOW UP 1. Follow up with Dr Landers 10/31/16 at 10:50 AM Current Hospital Diet Patient's current hospital diet: Regular Diet, Low Sodium Diet (2gm Na) Discharge Diet Recommended Diet: AHA Diet (Heart Healthy), Low Sodium Diet (2gm Na) Pending Studies Studies pending at discharge: no Medical Emergencies . Who to Call and When: Medical Emergencies: If at any time you feel your situation is an emergency, please call 911 immediately. . Non-Emergent Contact Non-Emergency issues call your: Primary Care Provider . . "Provider Documentation" section prepared by Olive Akbar. VTE Core Measure Inpt VTE Proph given/why not?: Other Anticoagulation (IV heparin/Xarelto)
[2016-10-24] MEDS: LISINOPRIL 20 MG TAB PO SCH (10:28)
[2016-10-24 10:33] VITALS: BP 115/67; PULSE 97; TEMP 36.7; O2SAT 98
== END 2016-10-24 12:55 | disposition home or self-care (01) | DRG 176 ==
LOC: ENRESERVDT → ENRESERVTM → C.EDB 12:43 → C.MS2W 15:53
PROVIDERS: ADMIT Internal Medicine; ATTEND Internal Medicine
DX: I26.99 Other pulmonary embolism without acute cor pulmonale (principal); J44.9 Chronic obstructive pulmonary disease, unspecified; E78.5 Hyperlipidemia, unspecified; I10 Essential (primary) hypertension; T38.5X5A Adverse effect of other estrogens and progestogens, initial encounter; J45.909 Unspecified asthma, uncomplicated; Z87.891 Personal history of nicotine dependence; Z87.01 Personal history of pneumonia (recurrent); Z79.82 Long term (current) use of aspirin; Z79.51 Long term (current) use of inhaled steroids; Z79.52 Long term (current) use of systemic steroids; Z79.1 Long term (current) use of non-steroidal anti-inflammatories (NSAID); Z79.890 Hormone replacement therapy

== ENCOUNTER 2025-05-05 20:49 | Observation (INO) ==
[2025-05-05] MEDS: OPTIRAY 320 125ml IV ONE (21:14)
[2025-05-05] MEDS: HYDROmorphone INJ 0.5 MG/0.5 ML SYR IV STA ×2 (21:26→22:25)
[2025-05-05 21:40] LABS: Hematocrit (blood only) 28.0 % (37.0-47.0); Hemoglobin 9.3 g/dl (12.0-16.0); Immature Granulocytes # (auto) 0.02 K/uL (0.01-0.20); Immature Granulocytes % (auto) 0.3 %; Mean Corpuscular Hemoglobin 31.7 pg (25.0-34.0); Mean Corpuscular Volume 95.6 fL (80.0-100.0); Platelet Count 256 K/uL (130-400); RDW Standard Deviation 48.0 fL (36.4-46.3); Red Blood Count 2.93 M/uL (4.20-5.40); White Blood Count 7.29 K/ul (4.8-10.8)
[2025-05-05] MEDS: LABETALOL HCL IV 5 MG/ML 20ML IV STA (21:51)
[2025-05-05] MEDS: ACETAMINOPHEN 1,000 MG/100 ML VIAL IV STA (21:53)
[2025-05-05 22:01] LABS: Albumin Level 3.8 gm/dl (3.4-5.0); Anion Gap 9.0 (3-11); Bilirubin,Total 0.3 mg/dl (0.2-1.0); Calcium 9.0 mg/dl (8.6-10.3); Carbon Dioxide 20.0 mmol/L (21-32); Chloride 112.0 mmol/L (98-107); Potassium 4.2 mmol/L (3.5-5.1); Sodium 141.0 mmol/L (136-145)
[2025-05-05 22:07] LABS: Alanine Aminotransferase 25.0 U/L (7-52); Albumin Globulin Ratio 1.6 (0.9-2); Alkaline Phosphatase 58.0 U/L (34-104); Blood Urea Nitrogen 31.0 mg/dl (6-23); Creatinine Clr Calc Pharmacy 40.1 ml/min; Globulin 2.4 gm/dl (2.5-4.0); Glucose 164.0 mg/dl (70-99(Fasting)); Lipase 31.0 U/L (11-82); Total Protein 6.2 gm/dl (6.0-8.3)
--- NOTE | 2025-05-05 22:51 | CT Scan Report ---
Exam(s): CTA CHEST W/WO Contrast IV Amt: 115cc opti 320 EXAM: CT Angiography Chest Without and With Intravenous Contrast CLINICAL HISTORY: Reason for exam: R shoulder/arm/neck pain. TECHNIQUE: Axial computed tomographic angiography images of the chest without and with intravenous contrast. CTDI is 16.92 mGy and DLP is 508.64 mGy-cm. Automated exposure control was utilized for the study. A dose lowering technique was utilized adhering to the principles of ALARA. MIP reconstructed images were created and reviewed. CONTRAST: Patient received 115cc opti 320 of IV contrast COMPARISON: 10/22/2016 FINDINGS: Pulmonary arteries: Adequate pulmonary artery opacification. Normal caliber main pulmonary artery. No evidence of acute pulmonary embolism. Aorta: Thoracic aortic atherosclerosis. No aortic intramural hematoma, aneurysm, or dissection. Lungs: Emphysema. No consolidation or mass. Calcified granuloma right lower lobe. Pleural space: No significant pleural effusion. No pneumothorax. Heart: Mitral annular calcification. Mild coronary artery calcification. Trace pericardial fluid. No cardiomegaly. Bones/joints: No acute fracture. No dislocation. Disc degeneration in the thoracic spine. Soft tissues: Bilateral retropectoral breast implants. Lymph nodes: Calcified mediastinal and right hilar lymph nodes in keeping with chronic granulomatous disease. No lymphadenopathy. Liver: Chronic granulomatous disease of the liver and spleen. IMPRESSION: 1. No evidence of acute pulmonary embolism. 2. Thoracic aortic atherosclerosis. No aortic intramural hematoma, aneurysm, or dissection. Electronically signed by: Nayely Solis M.D. 05/05/25 22:50 PM
--- NOTE | 2025-05-05 22:59 | XRay Report ---
Exam(s): XR CXR 1 VIEW EXAM: XR Chest, 1 View CLINICAL HISTORY: Reason for exam: Chest pain, nonspecific. TECHNIQUE: Frontal view of the chest. COMPARISON: 03/19/2025 FINDINGS: Lungs: No consolidation. Pleural space: No significant pleural effusion. No pneumothorax. Heart: No cardiomegaly or pulmonary vascular congestion. Bones/joints: No acute fracture. No dislocation. IMPRESSION: No evidence of acute cardiopulmonary disease. Electronically signed by: Nayely Solis M.D. 05/05/25 22:58 PM
--- NOTE | 2025-05-05 23:09 | History & Physical Report ---
Date of Service May 05, 2025 Assessment & Plan (1) Hypertensive crisis: Plan: Assessment and plan below following discussion of case with ED provider and reviewing patient history/pertinent normal/abnormal diagnostic test results. Hypertensive crisis Secondary to uncontrolled right shoulder pain Rule out bleeding given Xarelto Rx, history of PAF/PE chronic diastolic heart failure (EF 65%, TTE 2022), patient euvolemic to dry hx PVD hyperlipidemia, on statin Rx COPD/CLIFF/CPAP intolerance/nocturnal hypoxemia on home O2 at night, lung status at baseline prediabetes, hemoglobin A1c of 6 from August 2024 Acute on chronic anemia, hemoglobin drop from baseline rule out joint bleed given pain hx Mars's esophagus/GERD/esophageal dysmotility, stable on PPI fibromyalgia hx PMR on chronic steroid Rx past tobacco abuse OBS Admit to PCU IV hydralazine 1 dose now Analgesia Titrate home BP meds CT right shoulder Orthopedics consult contingent on CT results Hold Xarelto for now until CT resulted DVT prophylaxis. SCDs while Xarelto on hold Full code Text document was generated using [employer] voice recognition software. It may contain grammatical or spelling errors. Kindly contact undersigned for clarification of any documentation item in question. History of Present Illness Chief Complaint: Right shoulder pain Primary Care Provider: Blake Canales MD History obtained from patient, family, and records. Medical history significant for chronic diastolic heart failure (EF 65%, TTE 2022), PAF status post ablation/PE on Xarelto, PVD, hypertension, hyperlipidemia, COPD, CLIFF/CPAP intolerance, nocturnal hypoxemia on home O2 at night, prediabetes, chronic anemia (baseline hemoglobin of 10), Mars's esophagus/GERD/esophageal dysmotility, fibromyalgia, PMR on chronic steroid Rx, history of tremors, mood disorder, past tobacco abuse. Last confinement 2018 for rapid A-fib. 6 weeks ago, patient noted intermittent achy right shoulder pain without recollection of trauma or unusual exertion. Patient shortly seen at the ER for last March, for traumatic facial injuries secondary to fall. Patient subsequently discharged home. Patient mention symptoms to PCP on outpatient visit last week. Outpatient right shoulder x-ray showed no acute displaced fracture or dislocation. Mild degenerative change of the AC joint. Today, patient had more intense achy right shoulder pain going to the neck and arm. Worse on moving. No fever, no chills. No chest pain, no SOB, no headache symptoms. Highest SBP of 210s documented at the ER. IV labetalol administered at the ER. 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 Allergies Allergy/AdvReac Type Severity Reaction Status Date / Time tramadol Allergy Severe made Verified 05/05/25 23:27 breathing more difficult duloxetine Allergy Intermediate SEVERE Verified 08/02/18 06:39 HOTFLASHES lactose Allergy Intermediate GI DISTRESS Verified 08/02/18 06:39 clindamycin Allergy Mild RASH Verified 08/02/18 06:39 diphenhydramine Allergy Mild HYPERACTIVITY Verified 08/02/18 06:39 AND SKIN CRAWLS fluconazole Allergy Mild HIVES Verified 08/02/18 06:39 oak Allergy Unknown Unverified 08/20/18 10:32 ENVIRONMENTAL ALLERGIES Allergy Mild CONGESTION Uncoded 08/02/18 06:39 Home Medications Medication Instructions Recorded Confirmed Type albuterol sulfate 90 mcg/actuation 2 puff inhalation QID PRN 06/30/18 05/05/25 History aerosol inhaler (ProAir HFA) Shortness Of Breath cyclosporine 0.05 % eye drops in a 1 drp OPB Q12H 06/30/18 05/05/25 History dropperette (Restasis) lactase 3,000 unit tablet 3,000 unit PO UD PRN lactose 06/30/18 05/05/25 History intolerant lactobacillus combination no.4 3 3,000 mmu cells PO QAM 06/30/18 05/05/25 Histo ry billion cell capsule (Probiotic) multivitamin with minerals 1 cap PO QAM 06/30/18 05/05/25 History omeprazole 20 mg tablet,delayed 20 mg PO BID 06/30/18 05/05/25 History release prednisone 5 mg tablet 5 mg PO QAM 06/30/18 05/05/25 History calcium polycarbophil 625 mg 625 mg PO HS 07/17/18 05/05/25 History tablet (Fiber (calcium polycarbophil)) albuterol sulfate 1.25 mg/3 mL 1.25 mg (3 mL) inhalation Q8H PRN 08/02/18 05/05/25 Rx solution for nebulization shortness of breath or wheezing #90 mL acetaminophen 300 mg-codeine 30 mg 25 tab PO Q6 PRN Itching 05/05/25 05/05/25 History tablet amlodipine 2.5 mg tablet 2.5 mg PO QAM 05/05/25 05/05/25 History aspirin 81 mg tablet,delayed 81 mg PO QAM 05/05/25 05/05/25 History release budesonide 160 mcg-glycopyr 9 2 inh inhalation Q12 05/05/25 05/05/25 History mcg-formot 4.8 mcg/actuation HFA inhaler (Breztri Aerosphere) clobetasol 0.05 % topical cream 1 applic topical UD PRN PSORIASIS 05/05/25 05/05/25 History ezetimibe 10 mg tablet 10 mg PO HS 05/05/25 05/05/25 History ferrous sulfate 325 mg (65 mg 325 mg PO QPM 05/05/25 05/05/25 History iron) tablet hydrochlorothiazide 25 mg tablet 25 mg PO QAM 05/05/25 05/05/25 History losartan 50 mg tablet 50 mg PO AMHS 05/05/25 05/05/25 History metoprolol succinate 25 mg 25 mg PO QAM 05/05/25 05/05/25 History tablet,extended release 24 hr mirtazapine 45 mg tablet 45 mg PO HS 05/05/25 05/05/25 History montelukast 10 mg tablet 10 mg PO QAM 05/05/25 05/05/25 History ondansetron HCl 4 mg tablet 4 mg PO Q6 PRN Nausea 05/05/25 05/05/25 History risedronate 35 mg tablet 35 mg PO WK 05/05/25 05/05/25 History rivaroxaban 20 mg tablet (Xarelto) 20 mg PO QDD 05/05/25 05/05/25 History rosuvastatin 40 mg tablet 40 mg PO QAM 05/05/25 05/05/25 History sertraline 50 mg tablet 50 mg PO QAM 05/05/25 05/05/25 History solifenacin 10 mg tablet 10 mg PO QAM 05/05/25 05/05/25 History Past Med/Surg History Problem List (Updated 05/06/25 @ 00:35 by Randy Mims MD) Hypertensive crisis Diastolic heart failure Elevated troponin Polymyalgia rheumatica History of pulmonary embolus (PE) DVT prophylaxis Elevated LFTs Atrial fibrillation with RVR CKD (chronic kidney disease) stage 3, GFR 30-59 ml/min History of cardiac cath Depression Dry eye syndrome Hearing deficit Anemia Lactose intolerance History of colonoscopy Fibromyalgia Chronic back pain Allergic rhinitis (Chronic) COPD (chronic obstructive pulmonary disease) (Chronic) Atrial fibrillation, new onset (Acute) Hyperlipidemia (Chronic) Hypertension (Chronic) Anxiety (Chronic) Medical History (Updated 05/06/25 @ 00:35 by Randy Mims MD) PMR (polymyalgia rheumatica) Family History Mother , 58 Family hx of colon cancer Father Prostate cancer Social History Smoking Status: Former smoker Tobacco Type: Cigarettes Cigarettes Per Day: 40; Second Hand Exposure: No; Do You Dip or Chew Tobacco: No; Hx Alcohol Use: Yes Alcohol type: wine Alcohol Intake Frequency Comment: rare Hx Substance Use: No Preferred Language: Swedish Communication Ability: Effective Visual Impairment: No Limitations Hearing Ability: Normal Gallery Or Museum Attendant Required: No Beliefs That Will Affect Care: None marital status: Current Living Situation: Spouse and Family Current Living Situation Comment: Son, DIL and 2 grandchildren live with Feels Safe at Home: Yes Assistive Devices: Glasses Review of Systems Review of Systems: As per HPI, all other systems reviewed and negative Physical Exam Physical Exam: GENERAL: uncomfortable, slightly hard of hearing, no respiratory distress SKIN: Pallor, warm HEENT: Pale palpebral conjunctivae, no ptosis, dry buccal mucosa, nasal cannula in place NECK : Supple, no tenderness CHEST : Decreased breath sounds, no tenderness HEART : RRR, no obvious murmurs ABDOMEN: Some distention, nontender EXTREMITIES : Right shoulder tenderness, no LE swelling/tenderness, palpable pulses, no other conspicuous deformities noted NEUROLOGIC : Coherent, no facial asymmetry, no other gross focality Results & Data Results & Data Vital Signs (Past 12 Hours) Vital Signs Temp Pulse Resp BP Pulse Ox O2 Del Method 05/05/25 22:28 201/99 H 05/05/25 22:12 79 15 94 05/05/25 22:03 76 20 94 05/05/25 22:02 135/81 05/05/25 21:54 77 26 H 96 05/05/25 21:51 83 22 213/137 H 97 05/05/25 21:51 82 213/137 H 05/05/25 21:48 83 05/05/25 21:29 85 28 H 99 Room Air 05/05/25 20:52 36.4 C L 83 17 95 Room Air Laboratory Results Laboratory Results WBC 7.29 K/ul (4.8-10.8) 05/05/25 21:10 RBC 2.93 M/uL (4.20-5.40) L 05/05/25 21:10 Hgb 9.3 g/dl (12.0-16.0) L 05/05/25 21:10 POC Hgb 9.5 g/dl (12.0-16.0) L 05/05/25 21:13 Hct 28.0 % (37.0-47.0) L 05/05/25 21:10 POC Hct 28 % (37-47) L 05/05/25 21:13 MCV 95.6 fL (80.0-100.0) 05/05/25 21:10 MCH 31.7 pg (25.0-34.0) 05/05/25 21:10 MCHC 33.2 g/dL (32.0-36.0) 05/05/25 21:10 RDW Std Deviation 48.0 fL (36.4-46.3) H 05/05/25 21:10 RDW Coeff of Dandy 13.6 % (11.5-14.5) 05/05/25 21:10 Plt Count 256 K/uL (130-400) 05/05/25 21:10 MPV 9.7 fL (9.4-12.4) 05/05/25 21:10 Immature Gran % (Auto) 0.3 % 05/05/25 21:10 Neut % (Auto) 77.3 % 05/05/25 21:10 Lymph % (Auto) 12.1 % 05/05/25 21:10 Yancey % (Auto) 9.2 % 05/05/25 21:10 Eos % (Auto) 1.0 % 05/05/25 21:10 Baso % (Auto) 0.1 % 05/05/25 21:10 Neut # (Auto) 5.64 K/uL (1.40-6.50) 05/05/25 21:10 Lymph # (Auto) 0.88 K/uL (1.20-3.40) L 05/05/25 21:10 Yancey # (Auto) 0.67 K/uL (0.11-0.59) H 05/05/25 21:10 Eos # (Auto) 0.07 K/uL (0.00-0.50) 05/05/25 21:10 Baso # (Auto) 0.01 K/uL (0.00-0.20) 05/05/25 21:10 Immature Gran # (Auto) 0.02 K/uL (0.01-0.20) 05/05/25 21:10 POC Sodium 142 mmol/L (135-144) 05/05/25 21:13 Sodium 141 mmol/L (136-145) 05/05/25 21:10 POC Potassium 4.2 mmol/L (3.3-5.0) 05/05/25 21:13 Potassium 4.2 mmol/L (3.5-5.1) 05/05/25 21:10 POC Chloride 112 mmol/L (101-112) 05/05/25 21:13 Chloride 112 mmol/L (98-107) H 05/05/25 21:10 Carbon Dioxide 20 mmol/L (21-32) L 05/05/25 21:10 POC Total CO2 19 mmol/L (24-31) L 05/05/25 21:13 Anion Gap 9 (3-11) 05/05/25 21:10 POC Anion Gap 17.0 mmol/L (16-25) 05/05/25 21:13 POC BUN 28 mg/dl (7-18) H 05/05/25 21:13 BUN 31 mg/dl (6-23) H 05/05/25 21:10 Creatinine 1.10 mg/dl (0.6-1.2) 05/05/25 21:10 POC Creatinine 1.2 mg/dl (0.6-1.3) 05/05/25 21:13 Est Cr Clr Drug Dosing 40.1 ml/min 05/05/25 21:10 eGFR 51.11 05/05/25 21:10 BUN/Creatinine Ratio 28.2 (10-20) H 05/05/25 21:10 Glucose 164 mg/dl (70-99(Fasting)) H 05/05/25 21:10 POC Glucose (other) 167 mg/dl (70-99) H 05/05/25 21:13 Calcium 9.0 mg/dl (8.6-10.3) 05/05/25 21:10 POC Ioniz Calcium Olu 1.19 mmol/l (1.12-1.32) 05/05/25 21:13 Total Bilirubin 0.3 mg/dl (0.2-1.0) 05/05/25 21:10 AST 27 U/L (13-39) 05/05/25 21:10 ALT 25 U/L (7-52) 05/05/25 21:10 Alkaline Phosphatase 58 U/L (34-104) 05/05/25 21:10 Troponin I High Sens 10.5 pg/ml (0-14) 05/05/25 21:10 Total Protein 6.2 gm/dl (6.0-8.3) 05/05/25 21:10 Albumin 3.8 gm/dl (3.4-5.0) 05/05/25 21:10 Globulin 2.4 gm/dl (2.5-4.0) L 05/05/25 21:10 Albumin/Globulin Ratio 1.6 (0.9-2) 05/05/25 21:10 Lipase 31 U/L (11-82) 05/05/25 21:10 Impressions Chest X-Ray 05/05/25 21:00 Exam(s): XR CXR 1 VIEW EXAM: XR Chest, 1 View CLINICAL HISTORY: Reason for exam: Chest pain, nonspecific. TECHNIQUE: Frontal view of the chest. COMPARISON: 03/19/2025 FINDINGS: Lungs: No consolidation. Pleural space: No significant pleural effusion. No pneumothorax. Heart: No cardiomegaly or pulmonary vascular congestion. Bones/joints: No acute fracture. No dislocation. IMPRESSION: No evidence of acute cardiopulmonary disease. Electronically signed by: Nayely Solis M.D. 05/05/25 22:58 PM Chest CTA 05/05/25 21:07 Exam(s): CTA CHEST W/WO Contrast IV Amt: 115cc opti 320 EXAM: CT Angiography Chest Without and With Intravenous Contrast CLINICAL HISTORY: Reason for exam: R shoulder/arm/neck pain. TECHNIQUE: Axial computed tomographic angiography images of the chest without and with intravenous contrast. CTDI is 16.92 mGy and DLP is 508.64 mGy-cm. Automated exposure control was utilized for the study. A dose lowering technique was utilized adhering to the principles of ALARA. MIP reconstructed images were created and reviewed. CONTRAST: Patient received 115cc opti 320 of IV contrast COMPARISON: 10/22/2016 FINDINGS: Pulmonary arteries: Adequate pulmonary artery opacification. Normal caliber main pulmonary artery. No evidence of acute pulmonary embolism. Aorta: Thoracic aortic atherosclerosis. No aortic intramural hematoma, aneurysm, or dissection. Lungs: Emphysema. No consolidation or mass. Calcified granuloma right lower lobe. Pleural space: No significant pleural effusion. No pneumothorax. Heart: Mitral annular calcification. Mild coronary artery calcification. Trace pericardial fluid. No cardiomegaly. Bones/joints: No acute fracture. No dislocation. Disc degeneration in the thoracic spine. Soft tissues: Bilateral retropectoral breast implants. Lymph nodes: Calcified mediastinal and right hilar lymph nodes in keeping with chronic granulomatous disease. No lymphadenopathy. Liver: Chronic granulomatous disease of the liver and spleen. IMPRESSION: 1. No evidence of acute pulmonary embolism. 2. Thoracic aortic atherosclerosis. No aortic intramural hematoma, aneurysm, or dissection. Electronically signed by: Nayely Solis M.D. 05/05/25 22:50 PM Diagnostic Findings EKG as per my interpretation :Rate 80, NSR, normal axis, 1 AVB, T wave abnormality septal leads
--- NOTE | 2025-05-05 23:17 | Emergency Department Note ---
Impression & Plan Hypertensive emergency, Acute pain of right shoulder ED Provider Note NAME: ZOHRA FLORES AGE: 79 SEX: F : 1945 ARRIVES VIA: Walk-In INFORMANT: Patient, ED PROVIDER(S): Kayce Akbar MD CHIEF COMPLAINT: Shoulder pain HPI: This is a 79-year-old female presenting for right shoulder pain. Patient states that she began having right shoulder pain that started around 6 PM. This was a dull pain and became acutely worse. She is having unbearable pain at this time. Her worst pain she is ever had in her life. She notes no trauma to this area. She reports having vomiting from this. No chest pains associated. Pain goes from the shoulder down to the arm. It sometimes goes into the neck. She reports no difficulty with ambulation, extremity weakness or numbness/tingling. No shortness of breath, pleurisy. ROS: See above HPI for pertinent positives & negatives. A total of 10 systems reviewed and were otherwise negative. PAST MEDICAL HISTORY: See Below PAST SURGICAL HISTORY: See Below FAMILY HISTORY: See Below SOCIAL HISTORY: See Below HOME MEDICATIONS: See Below ALLERGIES: See Below VITALS: See Below PHYSICAL EXAMINATION: General: resting comfortably in no acute distress Head: Normocephalic and atraumatic Eyes: Normal inspection, extraocular muscles intact Ear, nose, throat: Normal external exam Neck: Normal range of motion Respiratory: lungs clear to auscultation bilaterally Cardiovascular: Regular rate/rhythm, no murmur GI: soft, nontender, no guarding or rebound Extremities: nontender, moves all extremities Neuro: The patient awake and alert, appropriately conversive, no focal deficits, symmetric faces Skin: Warm, dry, and intact MEDICAL DECISION MAKING: This is a 79-year-old female presenting for right shoulder pain. Based on severity of pain, concern for dissection. Also consider PE or ACS. She is hypertensive to 220s over 130s. She has no neurologic deficits and has 2+ pulses on my examination. She has full strength. No discoloration of hand or extremity. - ECG independently interpreted by me with normal sinus rhythm, rate of 78, normal axis, first-degree AV block, normal QRS, normal QTc, no ST segment elevations consistent with STEMI criteria - Initial troponin negative. Bloodwork is reviewed showing no significant leukocytosis, anemia, electrolyte or creatinine abnormality - Patient given Dilaudid 0.5 milligrams without significant improvement in pain. Patient given Tylenol 1000 mg IV, again without relief in symptoms. Will give a second dose of Dilaudid. - Patient given labetalol for blood pressures. It did downtrend to the 130s. -CT imaging does not reveal dissection or PE. - Patient requiring fairly strong pain control, and has continued pain. No obvious etiology for current pain based on CT imaging, EKG and blood work. Will admit for further workup as well as pain control. Differential diagnosis: Dissection, ACS, PE, nerve impingement, radiculopathy Independent History obtained from: Daughter Diagnostics interpreted by me: ECG: See above Cardiac Monitoring: An order was placed for continuous cardiac monitoring. The monitor shows a rate of 85 with sinus rhythm. Critical Care Note: I have personally spent 32 minutes of critical care time in the direct management of this patient. This includes bedside care, interpretation of diagnostic studies, and testing, discussion with consultants, patient, and family members, and other required patient management activities. This 32 minutes is in excess of all separately billable procedures. Past Med/Surg History Problem List (Updated 05/06/25 @ 11:11 by Kayce Akbar MD) Acute pain of right shoulder (Acute) Hypertensive emergency (Acute) Hypertensive crisis Diastolic heart failure Elevated troponin Polymyalgia rheumatica History of pulmonary embolus (PE) DVT prophylaxis Elevated LFTs Atrial fibrillation with RVR CKD (chronic kidney disease) stage 3, GFR 30-59 ml/min History of cardiac cath Depression Dry eye syndrome Hearing deficit Anemia Lactose intolerance History of colonoscopy Fibromyalgia Chronic back pain Allergic rhinitis (Chronic) COPD (chronic obstructive pulmonary disease) (Chronic) Atrial fibrillation, new onset (Acute) Hyperlipidemia (Chronic) Hypertension (Chronic) Anxiety (Chronic) Medical History (Updated 05/06/25 @ 11:11 by Kayce Akbar MD) PMR (polymyalgia rheumatica) Family History Mother , 58 Family hx of colon cancer Father Prostate cancer Social History Smoking Status: Former smoker Tobacco Type: Cigarettes Cigarettes Per Day: 40; Second Hand Exposure: No; Do You Dip or Chew Tobacco: No; Hx Alcohol Use: No Hx Substance Use: No Preferred Language: Persian Communication Ability: Effective Visual Impairment: No Limitations Hearing Ability: Normal 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 Beliefs That Will Affect Care: None marital status: Current Living Situation: Family Current Living Situation Comment: lives with and two adult children Feels Safe at Home: Yes Assistive Devices: Glasses and Hearing Aid - Bilateral Allergies Allergies Allergy/AdvReac Type Severity Reaction Status Date / Time tramadol Allergy Severe made Verified 05/05/25 23:27 breathing more difficult duloxetine Allergy Intermediate SEVERE Verified 08/02/18 06:39 HOTFLASHES lactose Allergy Intermediate GI DISTRESS Verified 08/02/18 06:39 clindamycin Allergy Mild RASH Verified 08/02/18 06:39 diphenhydramine Allergy Mild HYPERACTIVITY Verified 08/02/18 06:39 AND SKIN CRAWLS fluconazole Allergy Mild HIVES Verified 08/02/18 06:39 oak Allergy Unknown Unverified 08/20/18 10:32 ENVIRONMENTAL ALLERGIES Allergy Mild CONGESTION Uncoded 08/02/18 06:39 Home Meds Home Medications Medication Instructions Recorded Confirmed albuterol sulfate 90 mcg/actuation 2 puff inhalation QID PRN 06/30/18 05/05/25 aerosol inhaler (ProAir HFA) Shortness Of Breath cyclosporine 0.05 % eye drops in a 1 drp OPB Q12H 06/30/18 05/05/25 dropperette (Restasis) lactase 3,000 unit tablet 3,000 unit PO UD PRN lactose 06/30/18 05/05/25 intolerant lactobacillus combination no.4 3 3,000 mmu cells PO QAM 06/30/18 05/05/25 billion cell capsule (Probiotic) multivitamin with minerals 1 cap PO QAM 06/30/18 05/05/25 omeprazole 20 mg tablet,delayed 20 mg PO BID 06/30/18 05/05/25 release prednisone 5 mg tablet 5 mg PO QAM 06/30/18 05/05/25 calcium polycarbophil 625 mg 625 mg PO HS 07/17/18 05/05/25 tablet (Fiber (calcium polycarbophil)) acetaminophen 300 mg-codeine 30 mg 25 tab PO Q6 PRN Itching 05/05/25 05/05/25 tablet amlodipine 2.5 mg tablet 2.5 mg PO QAM 05/05/25 05/05/25 aspirin 81 mg tablet,delayed 81 mg PO QAM 05/05/25 05/05/25 release budesonide 160 mcg-glycopyr 9 2 inh inhalation Q12 05/05/25 05/05/25 mcg-formot 4.8 mcg/actuation HFA inhaler (Breztri Aerosphere) clobetasol 0.05 % topical cream 1 applic topical UD PRN PSORIASIS 05/05/25 05/05/25 ezetimibe 10 mg tablet 10 mg PO HS 05/05/25 05/05/25 ferrous sulfate 325 mg (65 mg 325 mg PO QPM 05/05/25 05/05/25 iron) tablet hydrochlorothiazide 25 mg tablet 25 mg PO QAM 05/05/25 05/05/25 losartan 50 mg tablet 50 mg PO AMHS 05/05/25 05/05/25 metoprolol succinate 25 mg 25 mg PO QAM 05/05/25 05/05/25 tablet,extended release 24 hr mirtazapine 45 mg tablet 45 mg PO HS 05/05/25 05/05/25 montelukast 10 mg tablet 10 mg PO QAM 05/05/25 05/05/25 ondansetron HCl 4 mg tablet 4 mg PO Q6 PRN Nausea 05/05/25 05/05/25 risedronate 35 mg tablet 35 mg PO WK 05/05/25 05/05/25 rivaroxaban 20 mg tablet (Xarelto) 20 mg PO QDD 05/05/25 05/05/25 rosuvastatin 40 mg tablet 40 mg PO QAM 05/05/25 05/05/25 sertraline 50 mg tablet 50 mg PO QAM 05/05/25 05/05/25 solifenacin 10 mg tablet 10 mg PO QAM 05/05/25 05/05/25 Previous Rx's Medication Instructions Recorded albuterol sulfate 1.25 mg/3 mL 1.25 mg (3 mL) inhalation Q8H PRN 08/02/18 solution for nebulization shortness of breath or wheezing #90 mL Results & Data (ED) Vital Signs Vital Signs - 24 hr 05/05/25 20:52 05/05/25 21:29 05/05/25 21:48 Temperature 36.4 C L Temperature Source Oral Pulse Rate 83 85 83 Pulse Rate [Left] Pulse Rate from SpO2 Sensor Pulse Rhythm Regular Pulse Strength Normal Respiratory Rate 17 28 H Respiratory Effort / Characteristics Non-Labored Spontaneous Respiratory Depth Normal Respiratory Pattern Regular Blood Pressure Blood Pressure [Left Arm] Blood Pressure Mean Blood Pressure Mean [Left Arm] Blood Pressure Position Sitting Blood Pressure Position [Left Arm] Pulse Oximetry 95 99 Oxygen Delivery Method Room Air Room Air Sepsis Recent Fever Within 48 Hours No Sepsis New/Unexplained Change in Mental Status N/A Sepsis Action Taken by Nursing No Action Required 05/05/25 21:51 05/05/25 21:51 05/05/25 21:54 Temperature Temperature Source Pulse Rate 82 83 77 Pulse Rate [Left] Pulse Rate from SpO2 Sensor 84 78 Pulse Rhythm Pulse Strength Respiratory Rate 22 26 H Respiratory Effort / Characteristics Respiratory Depth Respiratory Pattern Blood Pressure 213/137 H 213/137 H Blood Pressure [Left Arm] Blood Pressure Mean 162 Blood Pressure Mean [Left Arm] Blood Pressure Position Blood Pressure Position [Left Arm] Pulse Oximetry 97 96 Oxygen Delivery Method Sepsis Recent Fever Within 48 Hours Sepsis New/Unexplained Change in Mental Status Sepsis Action Taken by Nursing 05/05/25 22:02 05/05/25 22:03 05/05/25 22:12 Temperature Temperature Source Pulse Rate 76 79 Pulse Rate [Left] Pulse Rate from SpO2 Sensor 76 78 Pulse Rhythm Pulse Strength Respiratory Rate 20 15 Respiratory Effort / Characteristics Respiratory Depth Respiratory Pattern Blood Pressure 135/81 Blood Pressure [Left Arm] Blood Pressure Mean 91 Blood Pressure Mean [Left Arm] Blood Pressure Position Blood Pressure Position [Left Arm] Pulse Oximetry 94 94 Oxygen Delivery Method Sepsis Recent Fever Within 48 Hours Sepsis New/Unexplained Change in Mental Status Sepsis Action Taken by Nursing 05/05/25 22:28 05/05/25 23:14 05/05/25 23:23 Temperature Temperature Source Pulse Rate 85 Pulse Rate [Left] 86 Pulse Rate from SpO2 Sensor Pulse Rhythm Pulse Strength Respiratory Rate 16 Respiratory Effort / Characteristics Non-Labored Spontaneous Respiratory Depth Normal Respiratory Pattern Blood Pressure 201/99 H 217/100 H Blood Pressure [Left Arm] 217/100 H Blood Pressure Mean 129 Blood Pressure Mean [Left Arm] 139 Blood Pressure Position Blood Pressure Position [Left Arm] Lying Pulse Oximetry 96 Oxygen Delivery Method Room Air Sepsis Recent Fever Within 48 Hours Sepsis New/Unexplained Change in Mental Status Sepsis Action Taken by Nursing Laboratory Data 05/06/25 05:44 05/06/25 05:44 Lab Results 05/05/25 05/05/25 Range/Units 21:10 21:13 WBC 7.29 (4.8-10.8) K/ul RBC 2.93 L (4.20-5.40) M/uL Hgb 9.3 L (12.0-16.0) g/dl POC Hgb 9.5 L (12.0-16.0) g/dl Hct 28.0 L (37.0-47.0) % POC Hct 28 L (37-47) % MCV 95.6 (80.0-100.0) fL MCH 31.7 (25.0-34.0) pg MCHC 33.2 (32.0-36.0) g/dL RDW Std Deviation 48.0 H (36.4-46.3) fL RDW Coeff of Dandy 13.6 (11.5-14.5) % Plt Count 256 (130-400) K/uL MPV 9.7 (9.4-12.4) fL Immature Gran % (Auto) 0.3 % Neut % (Auto) 77.3 % Lymph % (Auto) 12.1 % Hays % (Auto) 9.2 % Eos % (Auto) 1.0 % Baso % (Auto) 0.1 % Neut # (Auto) 5.64 (1.40-6.50) K/uL Lymph # (Auto) 0.88 L (1.20-3.40) K/uL Hays # (Auto) 0.67 H (0.11-0.59) K/uL Eos # (Auto) 0.07 (0.00-0.50) K/uL Baso # (Auto) 0.01 (0.00-0.20) K/uL Immature Gran # (Auto) 0.02 (0.01-0.20) K/uL POC Sodium 142 (135-144) mmol/L Sodium 141 (136-145) mmol/L POC Potassium 4.2 (3.3-5.0) mmol/L Potassium 4.2 (3.5-5.1) mmol/L POC Chloride 112 (101-112) mmol/L Chloride 112 H (98-107) mmol/L Carbon Dioxide 20 L (21-32) mmol/L POC Total CO2 19 L (24-31) mmol/L Anion Gap 9 (3-11) POC Anion Gap 17.0 (16-25) mmol/L POC BUN 28 H (7-18) mg/dl BUN 31 H (6-23) mg/dl Creatinine 1.10 (0.6-1.2) mg/dl POC Creatinine 1.2 (0.6-1.3) mg/dl Est Cr Clr Drug Dosing 40.1 ml/min eGFR 51.11 BUN/Creatinine Ratio 28.2 H (10-20) Glucose 164 H (70-99(Fasting)) mg/dl POC Glucose (other) 167 H (70-99) mg/dl Calcium 9.0 (8.6-10.3) mg/dl POC Ioniz Calcium Olu 1.19 (1.12-1.32) mmol/l Magnesium 1.7 (1.7-2.4) mg/dl Total Bilirubin 0.3 (0.2-1.0) mg/dl AST 27 (13-39) U/L ALT 25 (7-52) U/L Alkaline Phosphatase 58 (34-104) U/L Troponin I High Sens 10.5 (0-14) pg/ml Total Protein 6.2 (6.0-8.3) gm/dl Albumin 3.8 (3.4-5.0) gm/dl Globulin 2.4 L (2.5-4.0) gm/dl Albumin/Globulin Ratio 1.6 (0.9-2) Lipase 31 (11-82) U/L Administered Medications Acetaminophen (Acetaminophen 325 Mg Tab) 650 mg PO QID PRN PRN Reason: pain/fever Stop: 06/04/25 23:03 Last Admin: 05/06/25 08:02 Dose: 650 mg Documented By: MES Lactase (Lactase 3000 Unit Tab) 3,000 units PO TIDM [facility] Stop: 06/05/25 07:59 Last Admin: 05/06/25 07:49 Dose: 3,000 units Documented By: MES Lactobacillus Acidophilus (Advanced Probiotic 625 Mg Capsule) 1,250 mg PO QAM [facility] Stop: 06/05/25 08:59 Last Admin: 05/06/25 08:03 Dose: 1,250 mg Documented By: MES Losartan Potassium (Losartan Potassium 50 Mg Tab) 50 mg PO BID [facility] Stop: 06/05/25 08:59 Last Admin: 05/06/25 08:03 Dose: 50 mg Documented By: MES Metoprolol Succinate (Metoprolol Succ 25mg Ext Rel Tab) 25 mg PO [facility] Stop: 06/05/25 08:59 Last Admin: 05/06/25 08:04 Dose: 25 mg Documented By: GAYLA Montelukast Sodium (Montelukast Sodium 10 Mg Tablet) 10 mg PO [facility] Stop: 06/05/25 08:59 Last Admin: 05/06/25 08:04 Dose: 10 mg Documented By: GAYLA Multivitamins/Minerals (Cerovite Adv Formula Tab) 1 tab PO [facility] Stop: 06/05/25 08:59 Last Admin: 05/06/25 08:05 Dose: 1 tab Documented By: GAYLA Oxybutynin Chloride (Oxybutynin Chloride Xl 5 Mg Tabcr) 10 mg PO [facility] Stop: 06/05/25 08:59 Last Admin: 05/06/25 08:04 Dose: 10 mg Documented By: GAYLA Oxycodone HCl (Oxycodone Hcl Ir 5 Mg Tab (Immediate Release)) 5 - 10 mg PO Q6H PRN PRN Reason: Pain Stop: 05/19/25 23:03 Last Admin: 05/06/25 08:02 Dose: 10 mg Documented By: GAYLA Pantoprazole Sodium (Pantoprazole 40 Mg Tab) 40 mg PO BID [facility] Stop: 06/05/25 08:59 Last Admin: 05/06/25 08:04 Dose: 40 mg Documented By: GAYLA Prednisone (Prednisone 5 Mg Tab) 5 mg PO [facility] Stop: 06/05/25 08:59 Last Admin: 05/06/25 08:05 Dose: 5 mg Documented By: GAYLA Rosuvastatin Calcium (Rosuvastatin Calcium 20 Mg Tab) 40 mg PO [facility] Stop: 06/05/25 08:59 Last Admin: 05/06/25 08:04 Dose: 40 mg Documented By: GAYLA Sertraline HCl (Sertraline Hcl 50 Mg Tablet) 50 mg PO [facility] Stop: 06/05/25 08:59 Last Admin: 05/06/25 08:05 Dose: 50 mg Documented By: GAYLA Discontinued Medications Albuterol (Albut/Ipratrop 3mg/0.5mg Neb 3 Ml Vial) 3 ml NEB NOW STA; Protocol Stop: 05/06/25 01:08 Last Admin: 05/06/25 01:26 Dose: 3 ml Documented By: ANNA Amlodipine Besylate (Amlodipine Besylate 5 Mg Tab) 2.5 mg PO NOW ONE Stop: 05/05/25 23:44 Last Admin: 05/06/25 01:08 Dose: Not Given Documented By: MÓNICA Amlodipine Besylate (Amlodipine Besylate 5 Mg Tab) 5 mg PO NOW ONE Stop: 05/06/25 04:59 Last Admin: 05/06/25 05:15 Dose: 5 mg Documented By: MÓNICA Hydralazine HCl (Hydralazine Hcl 20 Mg/Ml Vial) 10 mg IV NOW STA Stop: 05/05/25 23:01 Last Admin: 05/05/25 23:13 Dose: 10 mg Documented By: MICHELLE Hydromorphone HCl (Hydromorphone Inj 0.5 Mg/0.5 Ml Syr) 0.5 mg IV NOW STA Stop: 05/05/25 21:18 Last Admin: 05/05/25 21:26 Dose: 0.5 mg Documented By: POLY Hydromorphone HCl (Hydromorphone Inj 0.5 Mg/0.5 Ml Syr) 0.5 mg IV NOW STA Stop: 05/05/25 22:23 Last Admin: 05/05/25 22:25 Dose: 0.5 mg Documented By: POLY Acetaminophen (Ofirmev) 1,000 mg in 100 mls @ 400 mls/hr IV NOW STA Stop: 05/05/25 22:02 Last Infusion: 05/05/25 22:29 Dose: Infused Documented By: Admin: 05/05/25 21:53 Dose: 400 mls/hr Documented By: POLY Lactated Ringer's (Lr) 1,000 mls @ 50 mls/hr IV .Q20H ONE Stop: 05/06/25 19:46 Last Infusion: 05/06/25 11:03 Dose: Infused Documented By: Admin: 05/06/25 01:13 Dose: 50 mls/hr Documented By: MÓNICA Ioversol (Optiray 320 125ml) 115 ml IV ONCE ONE Stop: 05/05/25 21:15 Last Admin: 05/05/25 21:14 Dose: 115 ml Documented By: ERNESTO Labetalol HCl (Labetalol Hcl Iv 5 Mg/Ml 20ml) 10 mg IV NOW STA Stop: 05/05/25 21:48 Last Admin: 05/05/25 21:51 Dose: 10 mg Documented By: POLY Morphine Sulfate (Morphine Sulfate 2 Mg/Ml Carp) 2 mg IV NOW STA Stop: 05/05/25 23:45 Last Admin: 05/06/25 00:22 Dose: 2 mg Documented By: MICHELLE Oxycodone HCl (Oxycodone Hcl Ir 5 Mg Tab (Immediate Release)) 5 - 10 mg PO QID PRN PRN Reason: Pain Stop: 05/19/25 23:03 Last Admin: 05/06/25 01:13 Dose: 10 mg Documented By: MÓNICA Imaging Data Radiologist's Impression: Chest X-Ray 05/05/25 21:00 Exam(s): XR CXR 1 VIEW EXAM: XR Chest, 1 View CLINICAL HISTORY: Reason for exam: Chest pain, nonspecific. TECHNIQUE: Frontal view of the chest. COMPARISON: 03/19/2025 FINDINGS: Lungs: No consolidation. Pleural space: No significant pleural effusion. No pneumothorax. Heart: No cardiomegaly or pulmonary vascular congestion. Bones/joints: No acute fracture. No dislocation. IMPRESSION: No evidence of acute cardiopulmonary disease. Electronically signed by: Nayely Solis M.D. 05/05/25 22:58 PM Chest CTA 05/05/25 21:07 Exam(s): CTA CHEST W/WO Contrast IV Amt: 115cc opti 320 EXAM: CT Angiography Chest Without and With Intravenous Contrast CLINICAL HISTORY: Reason for exam: R shoulder/arm/neck pain. TECHNIQUE: Axial computed tomographic angiography images of the chest without and with intravenous contrast. CTDI is 16.92 mGy and DLP is 508.64 mGy-cm. Automated exposure control was utilized for the study. A dose lowering technique was utilized adhering to the principles of ALARA. MIP reconstructed images were created and reviewed. CONTRAST: Patient received 115cc opti 320 of IV contrast COMPARISON: 10/22/2016 FINDINGS: Pulmonary arteries: Adequate pulmonary artery opacification. Normal caliber main pulmonary artery. No evidence of acute pulmonary embolism. Aorta: Thoracic aortic atherosclerosis. No aortic intramural hematoma, aneurysm, or dissection. Lungs: Emphysema. No consolidation or mass. Calcified granuloma right lower lobe. Pleural space: No significant pleural effusion. No pneumothorax. Heart: Mitral annular calcification. Mild coronary artery calcification. Trace pericardial fluid. No cardiomegaly. Bones/joints: No acute fracture. No dislocation. Disc degeneration in the thoracic spine. Soft tissues: Bilateral retropectoral breast implants. Lymph nodes: Calcified mediastinal and right hilar lymph nodes in keeping with chronic granulomatous disease. No lymphadenopathy. Liver: Chronic granulomatous disease of the liver and spleen. IMPRESSION: 1. No evidence of acute pulmonary embolism. 2. Thoracic aortic atherosclerosis. No aortic intramural hematoma, aneurysm, or dissection. Electronically signed by: Nayely Solis M.D. 05/05/25 22:50 PM Discharge Plan Visit Data Chief Complaint: Shoulder Pain Stated Complaint: RT SHOULDER PAIN RADIATING INTO NECK ED Provider: Kayce Akbar Discharge Problem: Hypertensive emergency, Acute pain of right shoulder Patient Disposition: Admitted As Inpatient Condition: Serious Discharge Instructions Interventions: ED Discharge Assessment Last Done: 05/06/25 00:09
[2025-05-05 23:31] LABS: Magnesium 1.7 mg/dl (1.7-2.4)
[2025-05-05] MEDS ORDERED: MoRPHine SULFATE 4 MG/ML 1 ML CARP\\VIAL IV PRN (23:44)
[2025-05-06] MEDS ORDERED: LACTASE 3000 UNIT TAB PO PRN (00:05)
[2025-05-06] MEDS ORDERED: ARTIFICIAL TEARS OPB PRN (00:06)
[2025-05-06] MEDS: MoRPHine SULFATE 2 MG/ML CARP IV STA (00:22)
[2025-05-06] MEDS ORDERED: ALBUT/IPRATROP 3MG/0.5MG NEB 3 ML VIAL NEB PRN (01:07)
[2025-05-06] MEDS: LACTATED RINGER'S 1,000 ML IV ONE (01:13)
[2025-05-06] MEDS: ALBUT/IPRATROP 3MG/0.5MG NEB 3 ML VIAL NEB STA (01:26)
--- NOTE | 2025-05-06 01:38 | CT Scan Report ---
EXAM: CT shoulder RT wo con CLINICAL HISTORY: pain, noac. TECHNIQUE: Thin axial images of the right shoulder joint without contrast were obtained with sagittal and coronal reconstruction. One of the following dose reduction techniques was utilized for this exam: automated exposure control, adjustment of the mA and/or kV according to patient size, and use of iterative reconstruction. COMPARISON: None. FINDINGS: Bones: There is normal alignment of the humeral head, scapula, clavicle, and glenoid. There are no fractures or dislocations. There are no lytic or sclerotic lesions. There is generalized reduced bone density. Glenohumeral Joint: Moderate degenerative changes are seen in the right glenohumeral joint, as evidenced by osteophytosis and reduced joint space. Vacuum phenomenon is noted in the acromioclavicular joint. Acromioclavicular (AC) Joint: Moderate degenerative changes are seen in the right acromioclavicular joint. Decreased joint space is seen, with vacuum phenomenon. Soft Tissues: The soft tissues surrounding the shoulder appear normal. There are no signs of swelling, masses, or abnormal fluid collections. A right breast implant is seen. Emphysematous changes are seen in the right visualized lung. A 6 x 7 mm diffusely calcified nodule is seen in the right lung. Mild cervical spondylosis. IMPRESSION: 1. There is no evidence of acute fracture or dislocation. 2. 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 3. The rest of the findings are as above. 4. If clinically indicated, MRI of the shoulder is the modality of choice to rule out soft tissue or ligamentous pathology. Electronically signed by Anselmo Diaz 05-06-2025 01:38 AM
[2025-05-06 06:19] LABS: Hematocrit (blood only) 29.9 % (37.0-47.0); Hemoglobin 9.8 g/dl (12.0-16.0); Immature Granulocytes # (auto) 0.05 K/uL (0.01-0.20); Immature Granulocytes % (auto) 0.5 %; Mean Corpuscular Hemoglobin 31.8 pg (25.0-34.0); Mean Corpuscular Volume 97.1 fL (80.0-100.0); Platelet Count 261 K/uL (130-400); RDW Standard Deviation 48.6 fL (36.4-46.3); Red Blood Count 3.08 M/uL (4.20-5.40); White Blood Count 9.43 K/ul (4.8-10.8)
[2025-05-06 06:38] LABS: Anion Gap 7.0 (3-11); Blood Urea Nitrogen 24.0 mg/dl (6-23); Calcium 9.3 mg/dl (8.6-10.3); Carbon Dioxide 24.0 mmol/L (21-32); Chloride 110.0 mmol/L (98-107); Creatinine Clr Calc Pharmacy 49.0 ml/min; Glucose 111.0 mg/dl (70-99(Fasting)); Potassium 4.3 mmol/L (3.5-5.1); Sodium 141.0 mmol/L (136-145)
[2025-05-06] MEDS: LACTASE 3000 UNIT TAB PO SCH (07:49)
[2025-05-06] MEDS: ACETAMINOPHEN 325 MG TAB PO PRN (08:02)
[2025-05-06] MEDS: LOSARTAN POTASSIUM 50 MG TAB PO SCH (08:03)
[2025-05-06] MEDS: ADVANCED PROBIOTIC 625 MG CAPSULE PO SCH (08:03)
[2025-05-06] MEDS: METOPROLOL SUCC 25MG EXT REL TAB PO SCH (08:04)
[2025-05-06] MEDS: ROSUVASTATIN CALCIUM 20 MG TAB PO SCH (08:04)
[2025-05-06] MEDS: MONTELUKAST SODIUM 10 MG TABLET PO SCH (08:04)
[2025-05-06] MEDS: OXYBUTYNIN CHLORIDE XL 5 MG TABCR PO SCH (08:04)
[2025-05-06] MEDS: CEROVITE ADV FORMULA TAB PO SCH (08:05)
[2025-05-06] MEDS: SERTRALINE HCL 50 MG TABLET PO SCH (08:05)
--- NOTE | 2025-05-06 10:48 | Electrocardiogram Report ---
Test Reason : Blood Pressure : */* mmHG Vent. Rate : 78 BPM Atrial Rate : 78 BPM P-R Int : 210 ms QRS Dur : 84 ms QT Int : 410 ms P-R-T Axes : 60 49 66 degrees QTcB Int : 467 ms Sinus rhythm with 1st degree A-V block with Premature atrial complexes Nonspecific ST and T wave abnormality Abnormal ECG When compared with ECG of 25-Aug-2018 06:13, Premature atrial complexes are now Present Confirmed by Aram Skaggs ([id number]) on 05/06/2025 10:48:07 AM Referred By: REFERRED SELF Confirmed By: Aram Skaggs
--- NOTE | 2025-05-06 10:58 | XRay Report ---
XR shoulder RT min 2V routine CLINICAL HISTORY: pain COMPARISON: None FINDINGS: There is moderate AC joint osteoarthritis. There are mild glenohumeral degenerative change s. No acute fracture or dislocation seen. IMPRESSION: No fracture seen. ACT 112: Negative or not required by law. Electronically signed by: Abelardo Espinoza M.D. 05/06/2025 10:56 AM
--- NOTE | 2025-05-06 11:00 | XRay Report ---
XR cervical spine 2 or 3V CLINICAL HISTORY: arm pain COMPARISON STUDY: 03/19/2025 FINDINGS: There is severe diffuse degenerative disc disease. No fracture or subluxation seen. IMPRESSION: Severe degenerative changes. ACT 112: Negative or not required by law. Electronically signed by: Abelardo Espinoza M.D. 05/06/2025 10:59 AM
[2025-05-06] MEDS ORDERED: MoRPHine SULFATE 2 MG/ML CARP IV PRN (11:15)
[2025-05-06] MEDS: hydroCHLOROthiazide 25 MG TAB PO SCH (12:21)
[2025-05-06] MEDS: UMECLIDINIUM/VILANTEROL 62.5/25MCG 7 PUFFS/INHALER INH SCH (12:21)
--- NOTE | 2025-05-06 13:25 | Hospitalist Progress Note ---
Date of Service May 06, 2025 Assessment & Plan (1) Hypertensive crisis: Plan: Right shoulder pain Likely due to osteoarthritis H/O fibromyalgia --Shoulder CT:There is no evidence of acute fracture or dislocation. 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 Mild cervical spondylosis. --Shoulder X ray:No fracture seen. --Cervical X ray:severe diffuse degenerative disc disease. No fracture or subluxation seen. Pain control as needed Orthopedics consulted Hypertensive urgency Likely situational secondary to pain Amlodipine increased to 5 mg daily Continue losartan 50 mg twice a day, metoprolol succinate 25 mg daily, hydrochlorothiazide 25 mg daily IV hydralazine as needed Monitor blood pressure Right lung nodule --CT:6 x 7 mm diffusely calcified nodule is seen in the right lung. Follow-up as outpatient H/O PAF/PE Resume Xarelto if no plan for procedure by Ortho Continue metoprolol succinate for A-fib Other chronic conditions: Chronic diastolic heart failure (EF 65%, TTE 2022) PVD Hyperlipidemia, on statin COPD/CLIFF/CPAP intolerance Nocturnal hypoxemia on home O2 at night Prediabetes, Last HbA1C: 6.Aug Chronic anemia Mood disorder Mars's esophagus/GERD/esophageal dysmotility, on PPI H/O PMR on chronic Prednisone Past tobacco abuse Continue home medications as able DVT Px: SCDs resume Xarelto as able Code Status Full code Admission and Anticipated Discharge Date Admission Date: May 05, 2025 Subjective Patient is seen and examined at bedside States having right shoulder pain associate with some numbness of fingers Numbness resolved this morning per patient Denies any chest pain, no abdominal pain, neck pain, nausea, vomiting, dizziness Review of Systems Review of Systems: All systems reviewed & are unremarkable except as noted in Subjective Physical Exam Physical Exam: Physical Exam: Vitals signs as noted above General Appearance:Moderately built and nourished, no apparent distress Head: normocephalic, Atraumatic Eyes: normal inspection, EOMI Neck: supple, Trachea midline Respiratory/Chest: Decreased breath sounds, CTA, No accessory muscle use Cardiovascular: S1, S2, ? murmur Abdomen/GI:Soft, Non tender, Bowel sounds present Extremities/Musculoskeletal:normal inspection, no edema, R shoulder tender, decreased ROM Neurologic/Psych:AAOX3, grossly no focal neurological deficits Skin: normal color, warm Results & Data Results & Data Vital Signs (Past 12 Hours) Vital Signs Temp Pulse Pulse Resp BP Pulse Ox O2 Del Method 05/06/25 11:39 36.6 C 67 20 130/57 L 97 Nasal Cannula 05/06/25 10:15 Nasal Cannula 05/06/25 08:04 37.0 C 85 20 185/71 H 98 Nasal Cannula 05/06/25 05:55 85 05/06/25 03:54 36.8 C 89 16 162/65 H 96 Nasal Cannula 05/06/25 01:55 81 05/06/25 01:40 Nasal Cannula 05/06/25 01:31 36.5 C 81 22 127/85 97 Nasal Cannula 05/06/25 01:28 81 18 100 Nasal Cannula O2 Flow Rate 05/06/25 11:39 2 05/06/25 10:15 2 05/06/25 08:04 2 05/06/25 05:55 05/06/25 03:54 2 05/06/25 01:55 05/06/25 01:40 2 05/06/25 01:31 2 05/06/25 01:28 2 Laboratory Results Short CBC 05/05/25 05/06/25 Range/Units 21:10 05:44 WBC 7.29 9.43 (4.8-10.8) K/ul Hgb 9.3 L 9.8 L (12.0-16.0) g/dl Hct 28.0 L 29.9 L (37.0-47.0) % Plt Count 256 261 (130-400) K/uL BMP 05/05/25 05/06/25 21:10 05:44 Sodium 141 141 Potassium 4.2 4.3 Chloride 112 H 110 H Carbon Dioxide 20 L 24 BUN 31 H 24 H Creatinine 1.10 0.90 Glucose 164 H 111 H Calcium 9.0 9.3 Liver Function 05/05/25 Range/Units 21:10 Total Bilirubin 0.3 (0.2-1.0) mg/dl AST 27 (13-39) U/L ALT 25 (7-52) U/L Alkaline Phosphatase 58 (34-104) U/L Albumin 3.8 (3.4-5.0) gm/dl
[2025-05-06] MEDS ORDERED: CALCIUM CARBONATE 500 MG CHEWABLE TAB PO PRN (13:31)
[2025-05-06] MEDS ORDERED: ALUMINUM/MAGNESIUM/SIMETH (MAALOX MAX) 30 ML UDC PO PRN (13:32)
[2025-05-06] MEDS: FLUTICASONE FUROATE 200MCG 14 PUFFS/INHALER INH SCH (13:33)
--- NOTE | 2025-05-06 13:51 | Orthopedic Consultation ---
Date of Service May 06, 2025 Assessment & Plan (1) Rotator cuff arthropathy of right shoulder: * Case/imaging reviewed and discussed with Dr Montenegro * Disposition: TBD * Daily treatment: Physical Therapy/ Occupational Therapy per protocol * Weight bearing status: as tolerated * Pain control * Remainder care per primary team * Patient may follow-up outpatient for further evaluation and treatment, she may like to consider a steroid injection in that shoulder to help with flare of symptoms. (2) Osteoarthritis of right shoulder: History of Present Illness Reason for Consultation: . Right shoulder pain Requesting Physician: . Attending Physician: Matias Knight MD Patient is a 79 y/o female with right shoulder pain which started last evening around 6 PM. Pt notes she has had some pain in her shoulder in the past but nothing like this. Pt notes she was crying and vomiting due to pain. Pt was seen here in ED and given pain medication which she notes helped slightly. Pt states her pain is better but her shoulder is still bothersome. Pt denies any injury to her shoulder. Pt notes she did have a fall about 6 weeks ago when she fell forward striking her head off of a decorative rock. Pt does not recall injury to her shoulder at that time. Current workup including right shoulder CT and x-ray. Orthopedics consulted for management recommendations. At time of exam patient patient noted diffuse pain in the front of her shoulder radiating down her arm. Allergies Allergy/AdvReac Type Severity Reaction Status Date / Time tramadol Allergy Severe made Verified 05/05/25 23:27 breathing more difficult duloxetine Allergy Intermediate SEVERE Verified 08/02/18 06:39 HOTFLASHES lactose Allergy Intermediate GI DISTRESS Verified 08/02/18 06:39 clindamycin Allergy Mild RASH Verified 08/02/18 06:39 diphenhydramine Allergy Mild HYPERACTIVITY Verified 08/02/18 06:39 AND SKIN CRAWLS fluconazole Allergy Mild HIVES Verified 08/02/18 06:39 oak Allergy Unknown Unverified 08/20/18 10:32 ENVIRONMENTAL ALLERGIES Allergy Mild CONGESTION Uncoded 08/02/18 06:39 Home Medications Medication Instructions Recorded Confirmed Type albuterol sulfate 90 mcg/actuation 2 puff inhalation QID PRN 06/30/18 05/05/25 History aerosol inhaler (ProAir HFA) Shortness Of Breath cyclosporine 0.05 % eye drops in a 1 drp OPB Q12H 06/30/18 05/05/25 History dropperette (Restasis) lactase 3,000 unit tablet 3,000 unit PO UD PRN lactose 06/30/18 05/05/25 History intolerant lactobacillus combination no.4 3 3,000 mmu cells PO QAM 06/30/18 05/05/25 History billion cell capsule (Probiotic) multivitamin with minerals 1 cap PO QAM 06/30/18 05/05/25 History omeprazole 20 mg tablet,delayed 20 mg PO BID 06/30/18 05/05/25 History release prednisone 5 mg tablet 5 mg PO QAM 06/30/18 05/05/25 History calcium polycarbophil 625 mg 625 mg PO HS 07/17/18 05/05/25 History tablet (Fiber (calcium polycarbophil)) albuterol sulfate 1.25 mg/3 mL 1.25 mg (3 mL) inhalation Q8H PRN 08/02/18 05/05/25 Rx solution for nebulization shortness of breath or wheezing #90 mL acetaminophen 300 mg-codeine 30 mg 25 tab PO Q6 PRN Itching 05/05/25 05/05/25 History tablet amlodipine 2.5 mg tablet 2.5 mg PO QAM 05/05/25 05/05/25 History aspirin 81 mg tablet,delayed 81 mg PO QAM 05/05/25 05/05/25 History release budesonide 160 mcg-glycopyr 9 2 inh inhalation Q12 05/05/25 05/05/25 History mcg-formot 4.8 mcg/actuation HFA inhaler (Breztri Aerosphere) clobetasol 0.05 % topical cream 1 applic topical UD PRN PSORIASIS 05/05/2505/05 History ezetimibe 10 mg tablet 10 mg PO HS 05/05/25 05/05/25 History ferrous sulfate 325 mg (65 mg 325 mg PO QPM 05/05/25 05/05/25 History iron) tablet hydrochlorothiazide 25 mg tablet 25 mg PO QAM 05/05/25 05/05/25 History losartan 50 mg tablet 50 mg PO AMHS 05/05/25 05/05/25 History metoprolol succinate 25 mg 25 mg PO QAM 05/05/25 05/05/25 History tablet,extended release 24 hr mirtazapine 45 mg tablet 45 mg PO HS 05/05/25 05/05/25 History montelukast 10 mg tablet 10 mg PO QAM 05/05/25 05/05/25 History ondansetron HCl 4 mg tablet 4 mg PO Q6 PRN Nausea 05/05/25 05/05/25 History risedronate 35 mg tablet 35 mg PO WK 05/05/25 05/05/25 History rivaroxaban 20 mg tablet (Xarelto) 20 mg PO QDD 05/05/25 05/05/25 History rosuvastatin 40 mg tablet 40 mg PO QAM 05/05/25 05/05/25 History sertraline 50 mg tablet 50 mg PO QAM 05/05/25 05/05/25 History solifenacin 10 mg tablet 10 mg PO QAM 05/05/25 05/05/25 History Past Med/Surg History Problem List (Updated 05/06/25 @ 13:48 by Arti Garcia PA-C) Osteoarthritis of right shoulder Rotator cuff arthropathy of right shoulder Acute pain of right shoulder (Acute) Hypertensive emergency (Acute) Hypertensive crisis Diastolic heart failure Elevated troponin Polymyalgia rheumatica History of pulmonary embolus (PE) DVT prophylaxis Elevated LFTs Atrial fibrillation with RVR CKD (chronic kidney disease) stage 3, GFR 30-59 ml/min History of cardiac cath Depression Dry eye syndrome Hearing deficit Anemia Lactose intolerance History of colonoscopy Fibromyalgia Chronic back pain Allergic rhinitis (Chronic) COPD (chronic obstructive pulmonary disease) (Chronic) Atrial fibrillation, new onset (Acute) Hyperlipidemia (Chronic) Hypertension (Chronic) Anxiety (Chronic) Medical History (Updated 05/06/25 @ 13:48 by Arti Garcia PA-C) PMR (polymyalgia rheumatica) Family History Mother , 58 Family hx of colon cancer Father Prostate cancer Social History Smoking Status: Former smoker Tobacco Type: Cigarettes Cigarettes Per Day: 40; Second Hand Exposure: No; Do You Dip or Chew Tobacco: No; Hx Alcohol Use: No Hx Substance Use: No Preferred Language: Russian Communication Ability: Effective Visual Impairment: No Limitations 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 Physical Exam * General: Alert and oriented, no acute distress * Constitutional: well-developed, well-nourished. * Respiratory: Normal respiratory effort, no distress * Gastrointestinal: No tenderness to palpation, no rigidity or guarding. * Skin: No rash or lesion. * Neurologic: Grossly normal * Musculoskeletal: Right shoulder in normal alignment, no erythema, ecchymosis or significant effusion is noted. Pt is with limited ROM with forward flexion and abduction due to pain. Pt has gross weakness compared to left with testing in all planes. Pt is non tender at the AC joint, but tender along the anterior joint line and along proximal biceps. Results & Data Results & Data Laboratory Results Laboratory Results - last 24 hr 05/05/25 05/05/25 05/06/25 21:10 21:13 05:44 WBC 7.29 9.43 RBC 2.93 L 3.08 L Hgb 9.3 L 9.8 L POC Hgb 9.5 L Hct 28.0 L 29.9 L POC Hct 28 L MCV 95.6 97.1 MCH 31.7 31.8 MCHC 33.2 32.8 RDW Std Deviation 48.0 H 48.6 H RDW Coeff of Dandy 13.6 13.6 Plt Count 256 261 MPV 9.7 9.5 Immature Gran % (Auto) 0.3 0.5 Neut % (Auto) 77.3 83.0 Lymph % (Auto) 12.1 8.8 [place] % (Auto) 9.2 6.8 Eos % (Auto) 1.0 0.6 Baso % (Auto) 0.1 0.3 Neut # (Auto) 5.64 7.82 H Lymph # (Auto) 0.88 L 0.83 L [place] # (Auto) 0.67 H 0.64 H Eos # (Auto) 0.07 0.06 Baso # (Auto) 0.01 0.03 Immature Gran # (Auto) 0.02 0.05 POC Sodium 142 Sodium 141 141 POC Potassium 4.2 Potassium 4.2 4.3 POC Chloride 112 Chloride 112 H 110 H Carbon Dioxide 20 L 24 POC Total CO2 19 L Anion Gap 9 7 POC Anion Gap 17.0 POC BUN 28 H BUN 31 H 24 H Creatinine 1.10 0.90 POC Creatinine 1.2 Est Cr Clr Drug Dosing 40.1 49.0 eGFR 51.11 65.03 BUN/Creatinine Ratio 28.2 H 26.7 H Glucose 164 H 111 H POC Glucose (other) 167 H Calcium 9.0 9.3 POC Ioniz Calcium Olu 1.19 Magnesium 1.7 Total Bilirubin 0.3 AST 27 ALT 25 Alkaline Phosphatase 58 Troponin I High Sens 10.5 Total Protein 6.2 Albumin 3.8 Globulin 2.4 L Albumin/Globulin Ratio 1.6 Lipase 31 Blood Type B Positive Antibody Screen NEGATIVE . Diagnostic Findings Chest X-Ray 05/05/25 21:00 Exam(s): XR CXR 1 VIEW EXAM: XR Chest, 1 View CLINICAL HISTORY: Reason for exam: Chest pain, nonspecific. TECHNIQUE: Frontal view of the chest. COMPARISON: 03/19/2025 FINDINGS: Lungs: No consolidation. Pleural space: No significant pleural effusion. No pneumothorax. Heart: No cardiomegaly or pulmonary vascular congestion. Bones/joints: No acute fracture. No dislocation. IMPRESSION: No evidence of acute cardiopulmonary disease. Electronically signed by: Nayely Solis M.D. 05/05/25 22:58 PM Chest CTA 05/05/25 21:07 Exam(s): CTA CHEST W/WO Contrast IV Amt: 115cc opti 320 EXAM: CT Angiography Chest Without and With Intravenous Contrast CLINICAL HISTORY: Reason for exam: R shoulder/arm/neck pain. TECHNIQUE: Axial computed tomographic angiography images of the chest without and with intravenous contrast. CTDI is 16.92 mGy and DLP is 508.64 mGy-cm. Automated exposure control was utilized for the study. A dose lowering technique was utilized adhering to the principles of ALARA. MIP reconstructed images were created and reviewed. CONTRAST: Patient received 115cc opti 320 of IV contrast COMPARISON: 10/22/2016 FINDINGS: Pulmonary arteries: Adequate pulmonary artery opacification. Normal caliber main pulmonary artery. No evidence of acute pulmonary embolism. Aorta: Thoracic aortic atherosclerosis. No aortic intramural hematoma, aneurysm, or dissection. Lungs: Emphysema. No consolidation or mass. Calcified granuloma right lower lobe. Pleural space: No significant pleural effusion. No pneumothorax. Heart: Mitral annular calcification. Mild coronary artery calcification. Trace pericardial fluid. No cardiomegaly. Bones/joints: No acute fracture. No dislocation. Disc degeneration in the thoracic spine. Soft tissues: Bilateral retropectoral breast implants. Lymph nodes: Calcified mediastinal and right hilar lymph nodes in keeping with chronic granulomatous disease. No lymphadenopathy. Liver: Chronic granulomatous disease of the liver and spleen. IMPRESSION: 1. No evidence of acute pulmonary embolism. 2. Thoracic aortic atherosclerosis. No aortic intramural hematoma, aneurysm, or dissection. Electronically signed by: Nayely Solis M.D. 05/05/25 22:[address] 05/05/25 23:41 EXAM: CT shoulder RT wo con CLINICAL HISTORY: pain, noac. TECHNIQUE: Thin axial images of the right shoulder joint without contrast were obtained with sagittal and coronal reconstruction. One of the following dose reduction techniques was utilized for this exam: automated exposure control, adjustment of the mA and/or kV according to patient size, and use of iterative reconstruction. COMPARISON: None. FINDINGS: Bones: There is normal alignment of the humeral head, scapula, clavicle, and glenoid. There are no fractures or dislocations. There are no lytic or sclerotic lesions. There is generalized reduced bone density. Glenohumeral Joint: Moderate degenerative changes are seen in the right glenohumeral joint, as evidenced by osteophytosis and reduced joint space. Vacuum phenomenon is noted in the acromioclavicular joint. Acromioclavicular (AC) Joint: Moderate degenerative changes are seen in the right acromioclavicular joint. Decreased joint space is seen, with vacuum phenomenon. Soft Tissues: The soft tissues surrounding the shoulder appear normal. There are no signs of swelling, masses, or abnormal fluid collections. A right breast implant is seen. Emphysematous changes are seen in the right visualized lung. A 6 x 7 mm diffusely calcified nodule is seen in the right lung. Mild cervical spondylosis. IMPRESSION: 1. There is no evidence of acute fracture or dislocation. 2. 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 3. The rest of the findings are as above. 4. If clinically indicated, MRI of the shoulder is the modality of choice to rule out soft tissue or ligamentous pathology. Electronically signed by Anselmo Diaz 05-06-2025 01:38 AM Shoulder X-Ray 05/06/25 07:08 XR shoulder RT min 2V routine CLINICAL HISTORY: pain COMPARISON: None FINDINGS: There is moderate AC joint osteoarthritis. There are mild glenohumeral degenerative changes. No acute fracture or dislocation seen. IMPRESSION: No fracture seen. ACT 112: Negative or not required by law. Electronically signed by: Abelardo Espinoza M.D. 05/06/2025 10:56 AM Cervical Spine X-Ray 05/06/25 07:11 XR cervical spine 2 or 3V CLINICAL HISTORY: arm pain COMPARISON STUDY: 03/19/2025 FINDINGS: There is severe diffuse degenerative disc disease. No fracture or subluxation seen. IMPRESSION: Severe degenerative changes. ACT 112: Negative or not required by law. Electronically signed by: Abelardo Espinoza M.D. 05/06/2025 10:59 AM . PG Care Time/CCT Total # of Minutes Spent Total Time Spent with Patient: Total time spent is greater than 50% in coordination of care (as documented) at patient's floor/unit and/or counseling patient: [place] [address] IN/OBS CONSULT LVL 3,45M Patient Type New Diagnoses Rotator cuff arthropathy of right shoulder M12.811 Osteoarthritis of right shoulder M19.011
[2025-05-06] MEDS: RIVAROXABAN 20 MG TAB PO SCH (17:09)
[2025-05-06] MEDS: PROMETHAZINE 6.25 MG/50.25 ML BAG IV PRN (17:29)
[2025-05-06 19:37] VITALS: RESP 20
[2025-05-06] MEDS: METOCLOPRAMIDE HCL INJ 5 MG/ML 2 ML VIAL IV ONE (20:50)
[2025-05-06] MEDS ORDERED: NON-FORMULARY MEDICATION (Budesonide-Glycopyr-Formoterol [Breztri Aerosphere] 160-9-4.8 mc INH SCH (21:00)
[2025-05-06] MEDS: CALCIUM POLYCARBOPHIL 625MG TAB PO SCH (21:03)
[2025-05-06] MEDS: EZETIMIBE 10 MG TAB PO SCH (21:03)
[2025-05-06] MEDS: FERROUS SULFATE 325 MG TAB PO SCH (21:04)
[2025-05-06] MEDS: MIRTAZAPINE SOLTAB 15 MG PO SCH (21:04)
[2025-05-07 04:05] VITALS: O2SAT 95
[2025-05-07 06:20] LABS: Hematocrit (blood only) 30.7 % (37.0-47.0); Hemoglobin 10.0 g/dl (12.0-16.0); Mean Corpuscular Hemoglobin 32.3 pg (25.0-34.0); Mean Corpuscular Volume 99.0 fL (80.0-100.0); Platelet Count 249 K/uL (130-400); RDW Standard Deviation 49.0 fL (36.4-46.3); Red Blood Count 3.10 M/uL (4.20-5.40); White Blood Count 8.59 K/ul (4.8-10.8)
[2025-05-07 06:47] LABS: Anion Gap 6.0 (3-11); Blood Urea Nitrogen 24.0 mg/dl (6-23); Calcium 9.3 mg/dl (8.6-10.3); Carbon Dioxide 26.0 mmol/L (21-32); Chloride 108.0 mmol/L (98-107); Creatinine Clr Calc Pharmacy 44.8 ml/min; Glucose 91.0 mg/dl (70-99(Fasting)); Magnesium 1.9 mg/dl (1.7-2.4); Potassium 4.4 mmol/L (3.5-5.1); Sodium 140.0 mmol/L (136-145)
[2025-05-07] MEDS: ASPIRIN 81 MG ECTAB PO SCH (08:34)
[2025-05-07 09:08] VITALS: TEMP 99.7
--- NOTE | 2025-05-07 11:43 | Hospitalist Progress Note ---
Date of Service May 07, 2025 Assessment & Plan (1) Hypertensive crisis: Plan: Right shoulder pain Rotator cuff arthropathy of right shoulder Osteoarthritis H/O fibromyalgia --Shoulder CT:There is no evidence of acute fracture or dislocation. 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 Mild cervical spondylosis. --Shoulder X ray:No fracture seen. --Cervical X ray:severe diffuse degenerative disc disease. No fracture or subluxation seen. Pain control as needed Appreciate orthopedics input PT OT sommer pending Advised to follow-up with orthopedics on discharge for possible steroid injection Hypertensive urgency Situational secondary to pain Amlodipine increased to 5 mg daily Continue losartan 50 mg twice a day, metoprolol succinate 25 mg daily, hydrochlorothiazide 25 mg daily IV hydralazine as needed Blood pressure stable today Right lung nodule --CT:6 x 7 mm diffusely calcified nodule is seen in the right lung. Follow-up as outpatient H/O PAF/PE Resume Xarelto if no plan for procedure by Ortho Continue metoprolol succinate for A-fib Other chronic conditions: Chronic diastolic heart failure (EF 65%, TTE 2022) PVD Hyperlipidemia, on statin COPD/CLIFF/CPAP intolerance Nocturnal hypoxemia on home O2 at night Prediabetes, Last HbA1C: 6.Aug Chronic anemia Mood disorder Mars's esophagus/GERD/esophageal dysmotility, on PPI H/O PMR on chronic Prednisone Past tobacco abuse Continue home medications as able DVT Px: Xarelto Code Status Full code Admission and Anticipated Discharge Date Admission Date: May 05, 2025 Subjective Patient is seen and examined at bedside Right shoulder pain better when compared to yesterday No new complaints Denies any chest pain, no abdominal pain, neck pain, nausea, vomiting, dizziness Review of Systems Review of Systems: All systems reviewed & are unremarkable except as noted in Subjective Physical Exam Physical Exam: Physical Exam: Vitals signs as noted above General Appearance:Moderately built and nourished, no apparent distress Head: normocephalic, Atraumatic Eyes: normal inspection, EOMI Neck: supple, Trachea midline Respiratory/Chest: Decreased breath sounds, CTA, No accessory muscle use Cardiovascular: S1, S2, ? murmur Abdomen/GI:Soft, Non tender, Bowel sounds present Extremities/Musculoskeletal:normal inspection, no edema, R shoulder tender, decreased ROM Neurologic/Psych:AAOX3, grossly no focal neurological deficits Skin: normal color, warm Results & Data Results & Data Vital Signs (Past 12 Hours) Vital Signs Temp Pulse Pulse Resp BP Pulse Ox O2 Del Method 05/07/25 10:25 Nasal Cannula 05/07/25 09:07 37.6 C H 83 116/63 95 Room Air 05/07/25 05:40 92 H 05/07/25 04:04 37.4 C 82 20 157/77 H 95 Nasal Cannula 05/07/25 00:37 67 05/06/25 23:48 36.6 C 77 20 160/69 H 93 Nasal Cannula O2 Flow Rate 05/07/25 10:25 2 05/07/25 09:07 05/07/25 05:40 05/07/25 04:04 2 05/07/25 00:37 05/06/25 23:48 2 Laboratory Results Short CBC 05/07/25 Range/Units 05:28 WBC 8.59 (4.8-10.8) K/ul Hgb 10.0 L (12.0-16.0) g/dl Hct 30.7 L (37.0-47.0) % Plt Count 249 (130-400) K/uL BMP 05/07/25 05:28 Sodium 140 Potassium 4.4 Chloride 108 H Carbon Dioxide 26 BUN 24 H Creatinine 0.98 Glucose 91 Calcium 9.3
[2025-05-07 14:03] VITALS: BP 120/52
--- NOTE | 2025-05-07 14:44 | Discharge Summary ---
Date of Service May 07, 2025 Admission HPI Per Admitting Provider History obtained from patient, family, and records. Medical history significant for chronic diastolic heart failure (EF 65%, TTE 2022), PAF status post ablation/PE on Xarelto, PVD, hypertension, hyperlipidemia, COPD, CLIFF/CPAP intolerance, nocturnal hypoxemia on home O2 at night, prediabetes, chronic anemia (baseline hemoglobin of 10), Mars's esophagus/GERD/esophageal dysmotility, fibromyalgia, PMR on chronic steroid Rx, history of tremors, mood disorder, past tobacco abuse. Last confinement 2018 for rapid A-fib. 6 weeks ago, patient noted intermittent achy right shoulder pain without recollection of trauma or unusual exertion. Patient shortly seen at the ER for last March, for traumatic facial injuries secondary to fall. Patient subsequently discharged home. Patient mention symptoms to PCP on outpatient visit last week. Outpatient right shoulder x-ray showed no acute displaced fracture or dislocation. Mild degenerative change of the AC joint. Today, patient had more intense achy right shoulder pain going to the neck and arm. Worse on moving. No fever, no chills. No chest pain, no SOB, no headache symptoms. Highest SBP of 210s documented at the ER. IV labetalol administered at the ER. Medical History as above Surgical History : Breast capsulectomy, breast implant/removal, cataract surgeries, tonsillectomy/adenoidectomy, septoplasty, blepharoplasty, sinus surgery, vaginal hysterectomy Family History : Alcoholism, mood disorder, breast cancer, colon cancer Personal/Social history : Past tobacco abuse, occasional EtOH intake, retired s [employer] Admission Exam Per Admitting Provider GENERAL: uncomfortable, slightly hard of hearing, no respiratory distress SKIN: Pallor, warm HEENT: Pale palpebral conjunctivae, no ptosis, dry buccal mucosa, nasal cannula in place NECK : Supple, no tenderness CHEST : Decreased breath sounds, no tenderness HEART : RRR, no obvious murmurs ABDOMEN: Some distention, nontender EXTREMITIES : Right shoulder tenderness, no LE swelling/tenderness, palpable pulses, no other conspicuous deformities noted NEUROLOGIC : Coherent, no facial asymmetry, no other gross focality Principal Diagnosis Rotator cuff arthropathy of right shoulder Osteoarthritis Hypertension Right lung nodule Discharge Data Allergies Allergy/AdvReac Type Severity Reaction Status Date / Time tramadol Allergy Severe made Verified 05/05/25 23:27 breathing more difficult duloxetine Allergy Intermediate SEVERE Verified 08/02/18 06:39 HOTFLASHES lactose Allergy Intermediate GI DISTRESS Verified 08/02/18 06:39 clindamycin Allergy Mild RASH Verified 08/02/18 06:39 diphenhydramine Allergy Mild HYPERACTIVITY Verified 08/02/18 06:39 AND SKIN CRAWLS fluconazole Allergy Mild HIVES Verified 08/02/18 06:39 oak Allergy Unknown Unverified 08/20/18 10:32 ENVIRONMENTAL ALLERGIES Allergy Mild CONGESTION Uncoded 08/02/18 06:39 Consultations 05/06/25 01:47 Consult Orthopedic Surgery Routine Procedures Performed Laboratory Results WBC 8.59 K/ul (4.8-10.8) 05/07/25 05:28 RBC 3.10 M/uL (4.20-5.40) L 05/07/25 05:28 Hgb 10.0 g/dl (12.0-16.0) L 05/07/25 05:28 POC Hgb 9.5 g/dl (12.0-16.0) L 05/05/25 21:13 Hct 30.7 % (37.0-47.0) L 05/07/25 05:28 POC Hct 28 % (37-47) L 05/05/25 21:13 MCV 99.0 fL (80.0-100.0) 05/07/25 05:28 MCH 32.3 pg (25.0-34.0) 05/07/25 05:28 MCHC 32.6 g/dL (32.0-36.0) 05/07/25 05:28 RDW Std Deviation 49.0 fL (36.4-46.3) H 05/07/25 05:28 RDW Coeff of Dandy 13.6 % (11.5-14.5) 05/07/25 05:28 Plt Count 249 K/uL (130-400) 05/07/25 05:28 MPV 9.6 fL (9.4-12.4) 05/07/25 05:28 Immature Gran % (Auto) 0.5 % 05/06/25 05:44 Neut % (Auto) 83.0 % 05/06/25 05:44 Lymph % (Auto) 8.8 % 05/06/25 05:44 [place] % (Auto) 6.8 % 05/06/25 05:44 Eos % (Auto) 0.6 % 05/06/25 05:44 Baso % (Auto) 0.3 % 05/06/25 05:44 Neut # (Auto) 7.82 K/uL (1.40-6.50) H 05/06/25 05:44 Lymph # (Auto) 0.83 K/uL (1.20-3.40) L 05/06/25 05:44 [place] # (Auto) 0.64 K/uL (0.11-0.59) H 05/06/25 05:44 Eos # (Auto) 0.06 K/uL (0.00-0.50) 05/06/25 05:44 Baso # (Auto) 0.03 K/uL (0.00-0.20) 05/06/25 05:44 Immature Gran # (Auto) 0.05 K/uL (0.01-0.20) 05/06/25 05:44 POC Sodium 142 mmol/L (135-144) 05/05/25 21:13 Sodium 140 mmol/L (136-145) 05/07/25 05:28 POC Potassium 4.2 mmol/L (3.3-5.0) 05/05/25 21:13 Potassium 4.4 mmol/L (3.5-5.1) 05/07/25 05:28 POC Chloride 112 mmol/L (101-112) 05/05/25 21:13 Chloride 108 mmol/L (98-107) H 05/07/25 05:28 Carbon Dioxide 26 mmol/L (21-32) 05/07/25 05:28 POC Total CO2 19 mmol/L (24-31) L 05/05/25 21:13 Anion Gap 6 (3-11) 05/07/25 05:28 POC Anion Gap 17.0 mmol/L (16-25) 05/05/25 21:13 POC BUN 28 mg/dl (7-18) H 05/05/25 21:13 BUN 24 mg/dl (6-23) H 05/07/25 05:28 Creatinine 0.98 mg/dl (0.6-1.2) 05/07/25 05:28 POC Creatinine 1.2 mg/dl (0.6-1.3) 05/05/25 21:13 Est Cr Clr Drug Dosing 44.8 ml/min 05/07/25 05:28 eGFR 58.71 05/07/25 05:28 BUN/Creatinine Ratio 24.5 (10-20) H 05/07/25 05:28 Glucose 91 mg/dl (70-99(Fasting)) 05/07/25 05:28 POC Glucose (other) 167 mg/dl (70-99) H 05/05/25 21:13 Calcium 9.3 mg/dl (8.6-10.3) 05/07/25 05:28 POC Ioniz Calcium Olu 1.19 mmol/l (1.12-1.32) 05/05/25 21:13 Magnesium 1.9 mg/dl (1.7-2.4) 05/07/25 05:28 Total Bilirubin 0.3 mg/dl (0.2-1.0) 05/05/25 21:10 AST 27 U/L (13-39) 05/05/25 21:10 ALT 25 U/L (7-52) 05/05/25 21:10 Alkaline Phosphatase 58 U/L (34-104) 05/05/25 21:10 Troponin I High Sens 10.5 pg/ml (0-14) 05/05/25 21:10 Total Protein 6.2 gm/dl (6.0-8.3) 05/05/25 21:10 Albumin 3.8 gm/dl (3.4-5.0) 05/05/25 21:10 Globulin 2.4 gm/dl (2.5-4.0) L 05/05/25 21:10 Albumin/Globulin Ratio 1.6 (0.9-2) 05/05/25 21:10 Lipase 31 U/L (11-82) 05/05/25 21:10 Blood Type B Positive 05/06/25 05:44 Antibody Screen NEGATIVE 05/06/25 05:44 Impressions Chest X-Ray 05/05/25 21:00 Exam(s): XR CXR 1 VIEW EXAM: XR Chest, 1 View CLINICAL HISTORY: Reason for exam: Chest pain, nonspecific. TECHNIQUE: Frontal view of the chest. COMPARISON: 03/19/2025 FINDINGS: Lungs: No consolidation. Pleural space: No significant pleural effusion. No pneumothorax. Heart: No cardiomegaly or pulmonary vascular congestion. Bones/joints: No acute fracture. No dislocation. IMPRESSION: No evidence of acute cardiopulmonary disease. Electronically signed by: Nayely Solis M.D. 05/05/25 22:58 PM Chest CTA 05/05/25 21:07 Exam(s): CTA CHEST W/WO Contrast IV Amt: 115cc opti 320 EXAM: CT Angiography Chest Without and With Intravenous Contrast CLINICAL HISTORY: Reason for exam: R shoulder/arm/neck pain. TECHNIQUE: Axial computed tomographic angiography images of the chest without and with intravenous contrast. CTDI is 16.92 mGy and DLP is 508.64 mGy-cm. Automated exposure control was utilized for the study. A dose lowering technique was utilized adhering to the principles of ALARA. MIP reconstructed images were created and reviewed. CONTRAST: Patient received 115cc opti 320 of IV contrast COMPARISON: 10/22/2016 FINDINGS: Pulmonary arteries: Adequate pulmonary artery opacification. Normal caliber main pulmonary artery. No evidence of acute pulmonary embolism. Aorta: Thoracic aortic atherosclerosis. No aortic intramural hematoma, aneurysm, or dissection. Lungs: Emphysema. No consolidation or mass. Calcified granuloma right lower lobe. Pleural space: No significant pleural effusion. No pneumothorax. Heart: Mitral annular calcification. Mild coronary artery calcification. Trace pericardial fluid. No cardiomegaly. Bones/joints: No acute fracture. No dislocation. Disc degeneration in the thoracic spine. Soft tissues: Bilateral retropectoral breast implants. Lymph nodes: Calcified mediastinal and right hilar lymph nodes in keeping with chronic granulomatous disease. No lymphadenopathy. Liver: Chronic granulomatous disease of the liver and spleen. IMPRESSION: 1. No evidence of acute pulmonary embolism. 2. Thoracic aortic atherosclerosis. No aortic intramural hematoma, aneurysm, or dissection. Electronically signed by: Nayely Solis M.D. 05/05/25 22:[address] 05/05/25 23:41 EXAM: CT shoulder RT wo con CLINICAL HISTORY: pain, noac. TECHNIQUE: Thin axial images of the right shoulder joint without contrast were obtained with sagittal and coronal reconstruction. One of the following dose reduction techniques was utilized for this exam: automated exposure control, adjustment of the mA and/or kV according to patient size, and use of iterative reconstruction. COMPARISON: None. FINDINGS: Bones: There is normal alignment of the humeral head, scapula, clavicle, and glenoid. There are no fractures or dislocations. There are no lytic or sclerotic lesions. There is generalized reduced bone density. Glenohumeral Joint: Moderate degenerative changes are seen in the right glenohumeral joint, as evidenced by osteophytosis and reduced joint space. Vacuum phenomenon is noted in the acromioclavicular joint. Acromioclavicular (AC) Joint: Moderate degenerative changes are seen in the right acromioclavicular joint. Decreased joint space is seen, with vacuum phenomenon. Soft Tissues: The soft tissues surrounding the shoulder appear normal. There are no signs of swelling, masses, or abnormal fluid collections. A right breast implant is seen. Emphysematous changes are seen in the right visualized lung. A 6 x 7 mm diffusely calcified nodule is seen in the right lung. Mild cervical spondylosis. IMPRESSION: 1. There is no evidence of acute fracture or dislocation. 2. 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 3. The rest of the findings are as above. 4. If clinically indicated, MRI of the shoulder is the modality of choice to rule out soft tissue or ligamentous pathology. Electronically signed by Anselmo Diaz 05-06-2025 01:38 AM Shoulder X-Ray 05/06/25 07:08 XR shoulder RT min 2V routine CLINICAL HISTORY: pain COMPARISON: None FINDINGS: There is moderate AC joint osteoarthritis. There are mild glenohumeral degenerative changes. No acute fracture or dislocation seen. IMPRESSION: No fracture seen. ACT 112: Negative or not required by law. Electronically signed by: Abelardo Espinoza M.D. 05/06/2025 10:56 AM Cervical Spine X-Ray 05/06/25 07:11 XR cervical spine 2 or 3V CLINICAL HISTORY: arm pain COMPARISON STUDY: 03/19/2025 FINDINGS: There is severe diffuse degenerative disc disease. No fracture or subluxation seen. IMPRESSION: Severe degenerative changes. ACT 112: Negative or not required by law. Electronically signed by: Abelardo Espinoza M.D. 05/06/2025 10:59 AM Ordered Studies 05/05/25 21:07 CT angio chest dissec wo/w con Stat 05/05/25 23:41 CT shoulder RT wo con Stat Hospital Course (1) Hypertensive crisis: Right shoulder pain Rotator cuff arthropathy of right shoulder Osteoarthritis H/O fibromyalgia --Shoulder CT:There is no evidence of acute fracture or dislocation. 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 Mild cervical spondylosis. --Shoulder X ray:No fracture seen. --Cervical X ray:severe diffuse degenerative disc disease. No fracture or subluxation seen. Pain control as needed Appreciate orthopedics input PT OT cadenal Advised to follow-up with orthopedics on discharge for possible steroid injection Hypertensive urgency Situational secondary to pain Amlodipine increased to 5 mg daily Continue losartan 50 mg twice a day, metoprolol succinate 25 mg daily, hydrochlorothiazide 25 mg daily IV hydralazine as needed Blood pressure stable today Right lung nodule --CT:6 x 7 mm diffusely calcified nodule is seen in the right lung. Follow-up as outpatient H/O PAF/PE Resume Xarelto if no plan for procedure by Ortho Continue metoprolol succinate for A-fib Other chronic conditions: Chronic diastolic heart failure (EF 65%, TTE 2022) PVD Hyperlipidemia, on statin COPD/CLIFF/CPAP intolerance Nocturnal hypoxemia on home O2 at night Prediabetes, Last HbA1C: 6.Aug Chronic anemia Mood disorder Mars's esophagus/GERD/esophageal dysmotility, on PPI H/O PMR on chronic Prednisone Past tobacco abuse Continue home medications as able DVT Px: Xarelto Code Status Full code Total Time Total Time Spent Total Time Spent (In Minutes): 49 minutes Discharge Plan Discharge Items Patient Disposition: Home - Self-Care Reason For Visit: HTN URG Discharge Diagnosis: Rotator cuff arthropathy of right shoulder Osteoarthritis Hypertension Right lung nodule Condition on Discharge: Serious Activity: Per Instructions section Sexual Activity: Wait until after follow-up appointment Non-emergency contact: Primary Care Provider and Surgeon Call non-emergency contact if: you have any medication questions, your symptoms worsen, your pain is concerning for you and you have a fever Follow-up/Referrals: Curtis Fletcher [Physician Traffic And Transport Planner] - 05/09/25 11:00 am Blake Canales MD [Primary Care Provider] - (Date & Time 05/13/2025 11:00 AM Provider: Blake Canales MD [facility]) Diet: Heart Healthy Add Attending Provider Instructions: -- Follow-up with your primary care physician on 05/13/2025 11:00 AM -- Follow-up with orthopedic surgery Dr. Montenegro as recommended for possible steroid injection - Monitor your blood pressure regularly as advised and follow-up with your physician for further adjustment of medications as needed --You are incidentally noted to have a right lung nodule on CT chest. Follow-up with your physician for further recommendations. Seek immediate medical attention if your symptoms reoccur or worsen Please review medication list provided on discharge for any medication changes as instructed. Please call if you have any questions or problems. You can reach a [facility] hospitalist on duty at [facility] 24 hours a day by calling [phone] Pending Studies at Discharge: No Stand-Alone Forms: My [facility] [place], Smoking Cessation Medications and DC Order Prescriptions: New amlodipine 5 mg Tablet 5 mg PO QAM Qty: 30 0RF oxycodone 5 mg Tablet 5 mg PO Q8H PRN (Reason: pain) Qty: 14 0RF Continued prednisone 5 mg Tablet 5 mg PO QAM lactase 3,000 unit Tablet 3,000 unit PO UD PRN (Reason: lactose intolerant) Rx Instructions: WITH ANY DAIRY PRODUCTS albuterol sulfate [ProAir HFA] 90 mcg/actuation Hfa Aerosol Inhaler 2 puff INHALATION QID PRN (Reason: Shortness Of Breath) multivitamin with minerals Capsule 1 cap PO QAM cyclosporine [Restasis] 0.05 % Dropperette 1 drp OPB Q12H omeprazole 20 mg Tablet,Delayed Release (Dr/Ec) 20 mg PO BID Probiotic 3 billion cell Capsule 3,000 mmu cells PO QAM calcium polycarbophil [Fiber (calcium polycarbophil)] 625 mg Tablet 625 mg PO HS albuterol sulfate 1.25 mg/3 mL solution for nebulization 1.25 mg INH Q8H PRN (Reason: shortness of breath or wheezing) Qty: 90 0RF montelukast 10 mg tablet 10 mg PO QAM metoprolol succinate 25 mg tablet extended release 24 hr 25 mg PO QAM losartan 50 mg tablet 50 mg PO AMHS hydrochlorothiazide 25 mg tablet 25 mg PO QAM risedronate 35 mg tablet 35 mg PO WK Rx Instructions: SUNDAYS rosuvastatin 40 mg tablet 40 mg PO QAM solifenacin 10 mg tablet 10 mg PO QAM Breztri Aerosphere 160-9-4.8 mcg/actuation HFA aerosol inhaler 2 inh INHALATION Q12 sertraline 50 mg tablet 50 mg PO QAM Xarelto 20 mg tablet 20 mg PO QDD Rx Instructions: TAKES WITH EVENING MEAL clobetasol 0.05 % cream 1 applic TOPICAL UD PRN (Reason: PSORIASIS) Rx Instructions: APPLY TO AREAS OF PSORIASIS ON ARMS TWO TIMES A DAY FOR UP TO 2 WEEKS AT A TIME mirtazapine 45 mg tablet 45 mg PO HS ondansetron HCl 4 mg tablet 4 mg PO Q6 PRN (Reason: Nausea) aspirin [Aspirin Low-Strength] 81 mg Tablet,Delayed Release (Dr/Ec) 81 mg PO QAM ferrous sulfate 325 mg (65 mg iron) Tablet 325 mg PO QPM ezetimibe 10 mg tablet 10 mg PO HS Held acetaminophen-codeine 300-30 mg tablet 25 tab PO Q6 PRN (Reason: Itching) Hold Instructions: Hold until further recommendations from your family physician. Discontinued amlodipine 2.5 mg tablet 2.5 mg PO QAM Discharge Orders: Discharge Order (Routine); Ordered 05/07/25 Ordered By: Matias Knight Admission Data Admit Date/Time: 05/05/25 23:40 Attending Provider: Matias Knight Admit Provider: Randy Mims Primary Care Provider: Blake Canales Other Providers: Dexter Montenegro
[2025-05-07 15:34] VITALS: PULSE 70
== END 2025-05-07 16:48 | disposition home or self-care (01) ==
LOC: 2S 20:49 → ED 20:49 → SUATTDRO 23:40 → 2S 05-06 00:09 → 2N 05-06 16:43